=== PATIENT | female | born 1955 | race Caucasian/White ===

== ENCOUNTER 2016-02-19 11:08 | Observation (INO) | payer SELFPAY ==
[2016-02-19] VITALS (7 sets, daily range): BP systolic 139–217; BP diastolic 80–128; PULSE 63–85; RESP 16; TEMP 97–98.2; O2SAT 95–97
[~2016-02-19 11:08] MED LIST: ASPI81TA11 PO; B COTAB3 PO; CALCTAB32 OR; CLOP75 PO; HYDR12.56 PO; LISI-357 PO; METO25 PO; PROT40TA PO; ROSU20 PO; TAB-TAB PO
[2016-02-19] MEDS ORDERED: SODIUM CHLORIDE 0.9% FLUSH 5 ML FLUSH IVF PRN (12:15)
--- NOTE | 2016-02-19 12:18 | PD ---
HPI Chief Complaint: Dizziness Time Seen by Provider: 12:17 Travel History International Travel<30 days: No Contact w/Intl Traveler<30days: No Traveled to known affect area: No History of Present Illness HPI 60 year old female with history of HTN, CAD, stent placement, CABG, presents to the ED for evaluation of dizziness and unsteady gate since waking this morning around 6am. Pt states she got out of bed and "almost fell right on her face." She went back to bed to attempt to sleep it off, but it persisted for 6 hours. It seems like it may be starting to resolve at this time. She describes the sensation as the room was spinning; she could walk,but felt stuporous. She denies any chest pain, tightness, or shortness of breath. Pt has had sensation similar when the elevator at work stops, and it has been more frequent over the last month, but it lasts minutes; never this long and her gait has never been affected. She is concerned that something may be going on with her circulation because her feet are cold and they are never cold. She also states that her blood pressure is always very well controlled with systolic in the 120s on the medication that she takes. She did take her medication this morning. Denies headache, nausea, vomiting. No focal deficits or weakness. No history of TIA or CVA. Patient does have familial history of CVA. She denies any recent illnesses, fever, or chills. She has no other symptoms to report. PFSH Past Medical History Arthritis: No Asthma: No Autoimmune Disease: No Blood Disorders: No Anxiety: No Depression: No Heart Rhythm Problems: Yes Cancer: No Cardiac Catheterization: Yes (ANGIOPLASTY WAS DONE W/ STENT PLACEMENT) Cardiovascular Problems: Yes High Cholesterol: Yes Chemotherapy: No Chest Pain: No Congestive Heart Failure: No COPD: No Cerebrovascular Accident: No Coronary Artery Disease: Yes Diabetes: No Diminished Hearing: No Endocrine: No Gastrointestinal Disorders: Yes (GI BLEED JUNE 2002) GERD: No Genitourinary: Yes Hiatal Hernia: No Hypertension: Yes Immune Disorder: No Kidney Stones: No Musculoskeletal: Yes Neurologic: No Psychiatric: No Reproductive: No Respiratory: No Immunizations Current: Yes Migraines: No Myocardial Infarction: Yes (DURING ANGIOPLASTY) Radiation Therapy: No Renal Failure: No Seizures: No Sickle Cell Disease: No Sleep Apnea: No Thyroid Disease: No Menopausal: Yes : 2 Para: 3 Miscarriage: 1 Dilation and Curettage (D&C): Yes Past Surgical History Abdominal Surgery: Yes (2 SEPARATE REPAIR OF BLEEDING ULCERS) AICD: No Arteriovenous Shunt: No Coronary Artery Bypass Graft: Yes (2 VESSLE ) Coronary Stent: Yes (2004) Ear Surgery: No Endocrine Surgery: No Eye Surgery: No Genitourinary Surgery: No Gynecologic Surgery: Yes (D&C) Insulin Pump: No Joint Replacement: No Oral Surgery: No Pacemaker: Yes Thoracic Surgery: No Other Surgery: Yes Social History Alcohol Use: Yes (WINE OCC) Tobacco Use: No Substance Use: No Allergies-Medications (Allergen,Severity, Reaction): Coded Allergies: No Known Allergies (Verified , 02/19/16) Reported Meds & Prescriptions Reported Meds & Active Scripts Active Reported Protonix (Pantoprazole Sodium) 40 Mg Tab 40 Mg PO DAILY Plavix (Clopidogrel Bisulfate) 75 Mg Tab 75 Mg PO DAILY Crestor (Rosuvastatin Calcium) 20 Mg Tab 20 Mg PO DAILY Hydrochlorothiazide 12.5 Mg Tab 12.5 Mg PO DAILY Lisinopril 10 Mg Tab 10 Mg PO DAILY Metoprolol Tartrate 25 Mg Tab 25 Mg PO DAILY Review of Systems Except as stated in HPI: all other systems reviewed are Neg Physical Exam Narrative GENERAL: Well-nourished female patient, in no acute distress SKIN: Warm and dry. HEAD: Atraumatic. Normocephalic. EYES: EOMI. Peripheral No scleral icterus. No injection or drainage. ENT: No nasal bleeding or discharge. Mucous membranes pink and moist. NECK: Trachea midline. No JVD. CARDIOVASCULAR: Regular rate and rhythm. No murmur appreciated. RESPIRATORY: No accessory muscle use. Clear to auscultation. Breath sounds equal bilaterally. GASTROINTESTINAL: Abdomen soft, non-tender, nondistended. Hepatic and splenic margins not palpable. MUSCULOSKELETAL: No obvious deformities. No clubbing. No cyanosis. No edema. NEUROLOGICAL: Awake and alert. No obvious cranial nerve deficits. 5 left strength equal bilateral extremities. Sensation intact distal extremities. Patient has sway with Romberg and is unable to walk heel to toe without significant loss of balance. She can slowly do finger to thumb and has no difficulty doing [id number]. Normal speech. PSYCHIATRIC: Appropriate mood and affect; insight and judgment normal. Data Data Last Documented VS Vital Signs Date Time Temp Pulse Resp B/P Pulse Ox O2 Delivery O2 Flow Rate FiO2 02/19/16 13:05 170/91 02/19/16 12:20 16 97 Room Air 02/19/16 12:02 71 02/19/16 11:10 98.2 Orders Electrocardiogram (02/19/16 12:14) Prothrombin Time / Inr (Pt) (02/19/16 12:14) Act Partial Throm Time (Ptt) (02/19/16 12:14) Complete Blood Count With Diff (02/19/16 12:14) Basic Metabolic Panel (Bmp) (02/19/16 12:14) Creatine Kinase (Cpk) (02/19/16 12:14) Drug Screen, Random Urine (02/19/16 12:14) Troponin I (02/19/16 12:14) Urinalysis - C+S If Indicated (02/19/16 12:14) Ct Brain W/O Iv Contrast(Rout) (02/19/16 12:14) Chest, Single Ap (02/19/16 12:14) Ecg Monitoring (02/19/16 12:14) Iv Access Insert/Monitor (02/19/16 12:14) Oximetry (02/19/16 12:14) Sodium Chloride 0.9% Flush (Ns Flush) (02/19/16 12:15) Hydralazine Inj (Apresoline Inj) (02/19/16 12:30) Labs Laboratory Tests Test 02/19/16 12:25 White Blood Count 6.4 TH/MM3 Red Blood Count 5.09 MIL/MM3 Hemoglobin 15.9 GM/DL Hematocrit 46.6 % Mean Corpuscular Volume 91.6 FL Mean Corpuscular Hemoglobin 31.3 PG Mean Corpuscular Hemoglobin 34.1 % Concent Red Cell Distribution Width 13.2 % Platelet Count 212 TH/MM3 Mean Platelet Volume 9.0 FL Neutrophils (%) (Auto) 73.9 % Lymphocytes (%) (Auto) 15.4 % Monocytes (%) (Auto) 9.1 % Eosinophils (%) (Auto) 0.7 % Basophils (%) (Auto) 0.9 % Neutrophils # (Auto) 4.7 TH/MM3 Lymphocytes # (Auto) 1.0 TH/MM3 Monocytes # (Auto) 0.6 TH/MM3 Eosinophils # (Auto) 0.0 TH/MM3 Basophils # (Auto) 0.1 TH/MM3 CBC Comment DIFF FINAL Differential Comment Prothrombin Time SEC Prothromb Time International RATIO Ratio Activated Partial SEC Thromboplast Time Sodium Level 135 MEQ/L Potassium Level 3.5 MEQ/L Chloride Level 100 MEQ/L Carbon Dioxide Level 27.0 MEQ/L Anion Gap 8 MEQ/L Blood Urea Nitrogen 16 MG/DL Creatinine 0.85 MG/DL Estimat Glomerular Filtration 68 ML/MIN Rate Random Glucose 107 MG/DL Calcium Level 9.0 MG/DL Total Creatine Kinase 105 U/L Troponin I LESS THAN 0.02 NG/ML MDM Medical Decision Making Medical Screen Exam Complete: Yes Emergency Medical Condition: Yes Medical Record Reviewed: Yes Differential Diagnosis CVA versus TIA versus vertigo versus intracranial hemorrhage versus electrode abnormality versus orthostatic hypotension versus hypertensive urgency versus cardiac etiology Narrative Course 60 year-old female presents to the the emergency department for evaluation of dizziness. Patient appears overall well and without distress. She does have a slight sway with Romberg and she is unable to walk heel to toe, otherwise neurologically and is intact. CT imaging of the brain is without acute concern. Patient is quite hypertensive initially here in the emergency department. She is given hydralazine. Blood pressure does decrease but remains elevated. Patient reports slight sensation of dizziness remaining. CBC and BMP are without acute concern. Urinalysis is not yet collected are pending. I discussed the patient with my attending physician Dr. Santa. Patient cannot receive MRI because of her pacemaker however patient's symptoms still do persist and we feel the patient should be admitted for further evaluation. I spoke with resident physician web solutions architect. Patient will be admitted observation to the resident service. Diagnosis Primary Impression: Dizzinesses Additional Impression: Hypertensive urgency Admitting Information Admitting Physician Requests: Observation Condition: Stable Christa FarleyP Feb 19, 2016 12:17
[2016-02-19] MEDS ORDERED: hydrALAZINE HCL 20 MG/ML VIAL IV PUSH ONE (12:30)
[2016-02-19] MEDS ORDERED: ROSU20 PO (12:31)
[2016-02-19] MEDS ORDERED: LISI10TA3 PO (12:31)
[2016-02-19] MEDS ORDERED: PLAV75TA29 PO (12:31)
[2016-02-19] MEDS ORDERED: PROT40TA PO (12:31)
[2016-02-19] MEDS ORDERED: METO25TA3 PO (12:31)
[2016-02-19] MEDS ORDERED: HYDR12.56 PO (12:31)
--- NOTE | 2016-02-19 12:39 | RADRPT ---
EXAM DATE/TIME: 02/19/2016 12:33 [facility] COMPARISON: No previous studies available for comparison. INDICATIONS : Dizziness. RADIATION DOSE: 36.75 CTDIvol (mGy) MEDICAL HISTORY : Cardiovascular disease. Hypertension. SURGICAL HISTORY : None. ENCOUNTER: Initial ACUITY: 1 day PAIN SCALE: 0/10 LOCATION: cranial TECHNIQUE: Multiple contiguous axial images were obtained of the head. Using automated exposure control and adj ustment of the mA and/or kV according to patient size, radiation dose was kept as low as reasonably a chievable to obtain optimal diagnostic quality images. FINDINGS: CEREBRUM: The ventricles are normal for age. No evidence of midline shift, mass lesion, hemorrhage or acute in farction. No extra-axial fluid collections are seen. POSTERIOR FOSSA: The cerebellum and brainstem are intact. The 4th ventricle is midline. The cerebellopontine angle i s unremarkable. EXTRACRANIAL: The visualized portion of the orbits is intact. SKULL: The calvaria is intact. No evidence of skull fracture. CONCLUSION: No acute disease. Evelio Murcia MD on February 19, 2016 at 12:36 Board Certified Radiologist. This report was verified electronically.
[2016-02-19 12:41] LABS: AUTOMATED NEUTROPHIL # 4.7 TH/MM3 (1.8-7.7); BASOPHIL # 0.1 TH/MM3 (0-0.2); BASOPHIL % 0.9 % (0.0-2.0); EOSINOPHIL % 0.7 % (0.0-4.0); HEMATOCRIT 46.6 % (35.0-46.0); HEMO FLAGS DIFF FINAL; LYMPH % 15.4 % (9.0-44.0); MEAN CELL VOLUME 91.6 FL (80.0-100.0); MEAN CORPUSCULAR HEMOGLOBIN 31.3 PG (27.0-34.0); MEAN CORPUSCULAR HGB CONC 34.1 % (32.0-36.0); MONO % 9.1 % (0.0-8.0); NEUT % 73.9 % (16.0-70.0); PLATELET COUNT 212 TH/MM3 (150-450); RED BLOOD COUNT 5.09 MIL/MM3 (4.00-5.30); RED CELL DISTRIBUTION WIDTH 13.2 % (11.6-17.2); WHITE BLOOD COUNT 6.4 TH/MM3 (4.0-11.0)
[2016-02-19 12:58] LABS: ANION GAP 8 MEQ/L (5-15); BLOOD UREA NITROGEN 16 MG/DL (7-18); CHLORIDE 100 MEQ/L (98-107); GLOMERULAR FILTRATION RATE 68 ML/MIN (>89); POTASSIUM 3.5 MEQ/L (3.5-5.1); SODIUM (NA) 135 MEQ/L (136-145)
[2016-02-19 13:01] LABS: CREATINE KINASE 105 U/L (26-192)
--- NOTE | 2016-02-19 13:17 | RADRPT ---
EXAM DATE/TIME: 02/19/2016 13:03 [facility] COMPARISON: CHEST SINGLE AP, December 07, 2012, 21:44. INDICATIONS : CVA. Pt. c/o dizziness. MEDICAL HISTORY : None. SURGICAL HISTORY : Defibrillator 2012. ENCOUNTER: Initial ACUITY: 1 day PAIN SCORE: 0/10 LOCATION: Bilateral chest FINDINGS: AP upright view of the chest demonstrates interval appearance of a dual-lead device. Heart size is no rmal. Pulmonary vasculature is normal. Lungs are well-inflated and clear. Osseous structures are unre markable. CONCLUSION: No acute disease. Amy Khoury MD on February 19, 2016 at 13:15 Board Certified Radiologist. This report was verified electronically.
--- NOTE | 2016-02-19 14:17 | PD ---
Physical Exam Date Seen by Provider: Feb 19, 2016 Time Seen by Provider: 13:15 Narrative I, Dr. Santa, have reviewed the advance practice practitioner's documentation and am in agreement, met with the patient face to face, made the diagnosis, and the medical decision making was done by me. *My assessment and Findings: Patient seen and evaluated with nurse practitioner. Please see previous note for further details. Here with dizziness, unsteadiness, fairly elevated blood pressures. Patient is somewhat unsteady on Romberg testing. No focal neurological deficits identified. EKG shows NSR, no ST elevation or depression, and no arrhythmias. No significant T-wave inversions. Laboratory Tests Test 02/19/16 12:25 Hemoglobin 15.9 GM/DL (11.6-15.3) Hematocrit 46.6 % (35.0-46.0) Neutrophils (%) (Auto) 73.9 % (16.0-70.0) Monocytes (%) (Auto) 9.1 % (0.0-8.0) Sodium Level 135 MEQ/L (136-145) Estimat Glomerular Filtration 68 ML/MIN (>89) Rate Random Glucose 107 MG/DL (74-106) Troponin I LESS THAN 0.02 NG/ML (0.02-0.05) Last [address] 02/19/16 1214 Signed Impressions: Service Date/Time: Friday, February 19, 2016 12:33 - CONCLUSION: No acute disease. Evelio Murcia MD Chest X-Ray 02/19/16 1214 Signed Impressions: Service Date/Time: Friday, February 19, 2016 13:03 - CONCLUSION: No acute disease. Amy Khoury MD Initial CT of the brain is negative. Patient was given hydralazine IV for her fairly elevated blood pressure. At this point, plan would be to admit the patient for further treatment of blood pressure and further evaluation of neurological symptoms. She is unable to get MRI secondary to pacemaker. Case is discussed with family practice resident service for admission. Data Data Last Documented VS Vital Signs Date Time Temp Pulse Resp B/P Pulse Ox O2 Delivery O2 Flow Rate FiO2 02/19/16 13:52 66 16 141/82 95 02/19/16 12:20 Room Air 02/19/16 11:10 98.2 Orders Electrocardiogram (02/19/16 12:14) Prothrombin Time / Inr (Pt) (02/19/16 12:14) Act Partial Throm Time (Ptt) (02/19/16 12:14) Complete Blood Count With Diff (02/19/16 12:14) Basic Metabolic Panel (Bmp) (02/19/16 12:14) Creatine Kinase (Cpk) (02/19/16 12:14) Drug Screen, Random Urine (02/19/16 12:14) Troponin I (02/19/16 12:14) Urinalysis - C+S If Indicated (02/19/16 12:14) Ct Brain W/O Iv Contrast(Rout) (02/19/16 12:14) Chest, Single Ap (02/19/16 12:14) Ecg Monitoring (02/19/16 12:14) Iv Access Insert/Monitor (02/19/16 12:14) Oximetry (02/19/16 12:14) Sodium Chloride 0.9% Flush (Ns Flush) (02/19/16 12:15) Hydralazine Inj (Apresoline Inj) (02/19/16 12:30) Admit Order (Ed Use Only) (02/19/16 13:49) Labs Laboratory Tests Test 02/19/16 12:25 White Blood Count 6.4 TH/MM3 Red Blood Count 5.09 MIL/MM3 Hemoglobin 15.9 GM/DL Hematocrit 46.6 % Mean Corpuscular Volume 91.6 FL Mean Corpuscular Hemoglobin 31.3 PG Mean Corpuscular Hemoglobin 34.1 % Concent Red Cell Distribution Width 13.2 % Platelet Count 212 TH/MM3 Mean Platelet Volume 9.0 FL Neutrophils (%) (Auto) 73.9 % Lymphocytes (%) (Auto) 15.4 % Monocytes (%) (Auto) 9.1 % Eosinophils (%) (Auto) 0.7 % Basophils (%) (Auto) 0.9 % Neutrophils # (Auto) 4.7 TH/MM3 Lymphocytes # (Auto) 1.0 TH/MM3 Monocytes # (Auto) 0.6 TH/MM3 Eosinophils # (Auto) 0.0 TH/MM3 Basophils # (Auto) 0.1 TH/MM3 CBC Comment DIFF FINAL Differential Comment Prothrombin Time SEC Prothromb Time International RATIO Ratio Activated Partial SEC Thromboplast Time Sodium Level 135 MEQ/L Potassium Level 3.5 MEQ/L Chloride Level 100 MEQ/L Carbon Dioxide Level 27.0 MEQ/L Anion Gap 8 MEQ/L Blood Urea Nitrogen 16 MG/DL Creatinine 0.85 MG/DL Estimat Glomerular Filtration 68 ML/MIN Rate Random Glucose 107 MG/DL Calcium Level 9.0 MG/DL Total Creatine Kinase 105 U/L Troponin I LESS THAN 0.02 NG/ML MDM Medical Record Reviewed: Yes Supervised Visit with ARJUN: Yes Diagnosis Primary Impression: Dizzinesses Additional Impression: Hypertensive urgency Admitting Information Admitting Physician Requests: Admit Condition: Stable Deep Santa MD Feb 19, 2016 14:17
[2016-02-19] MEDS ORDERED: SODIUM CHLOR 0.45% 1000 ML INJ 1,000 ML IV SCH (14:25)
[2016-02-19] MEDS ORDERED: SODIUM CHLORIDE 0.9% FLUSH 5 ML FLUSH FLUSH PRN (14:30)
[2016-02-19] MEDS ORDERED: NALOXONE HCL 0.4 MG/ML AMP IV PRN (14:30)
[2016-02-19] MEDS ORDERED: ACETAMINOPHEN 325 MG TAB PO PRN (14:30)
[2016-02-19] MEDS ORDERED: ONDANSETRON ODT 4 MG TAB PO PRN (14:45)
[2016-02-19] MEDS ORDERED: cloNIDine HCL 0.1 MG TAB PO PRN (14:45)
--- NOTE | 2016-02-19 14:46 | HHI.HP ---
[facility] Service Family Medicine Primary Care Physician No Primary Care Physician Admission Diagnosis dizziness; hypertensive urgency; r/o cva/tia Diagnoses: Chief Complaint: Dizziness International Travel<30 Days: No Contact w/Intl Traveler<30days: No Known Affected Area: No History of Present Illness Issue is a 60-year-old female with past medical history significant for CAD with h/o of stents and CABG, now with defibrillator who presents today for dizziness. Patient states that she woke up at 7 AM and felt dizzy and shaking. She felt like she was going to fall over. She did not have any focal weakness or paresthesia. She denied any chest pain, shortness of breath, palpitations, headache, fever, or chills. She felt as if she was "trying to stand on a [id number] without holding on," or off balance. She was concerned that this was related to some kind of cardiac issue and came to the emergency department immediately. Symptoms resolved around 11 AM. She is currently feeling much better. She did not do anything new or different yesterday. She has had sinus congestion for the past 3 months that she is taking Claritin for. She was seen television schedule coordinator, Dr. Robles before she moved to [place]. She moved back to [place] 3 months ago and does not have insurance at this time and has been unable to see a television schedule coordinator for that reason. Review of Systems Constitutional: COMPLAINS OF: Dizziness, DENIES: Fever, Chills, Change in appetite Eyes: COMPLAINS OF: Blurred vision (chronic) Ears, nose, mouth, throat: COMPLAINS OF: Nasal discharge, Sinus Pain, DENIES: Throat pain Respiratory: DENIES: Cough, Shortness of breath Cardiovascular: DENIES: Chest pain, Palpitations, Syncope, Lower Extremity Edema Gastrointestinal: DENIES: Abdominal pain, Black stools, Bloody stools, Nausea, Vomiting Genitourinary: DENIES: Abnormal vaginal bleeding, Hematuria, Dysuria Musculoskeletal: DENIES: Muscle aches, Neck pain Integumentary: DENIES: Rash Hematologic/lymphatic: DENIES: Bruising Neurologic: COMPLAINS OF: Poor Balance, DENIES: Abnormal gait, Headache, Localized weakness, Paresthesias, Seizures, Speech Problems, Tremor Psychiatric: DENIES: Confusion Past Family Social History Past Medical History CADAngioplasty with stent placement (ND during angioplasty), CABG, now with AICD. GI bleed from gastric ulcer requiring blood transfusion HTN HLD Past Surgical History CABG x 2 Cardiac cath with stent x 3 Reported Medications Reported Meds & Active Scripts Active Reported Protonix (Pantoprazole Sodium) 40 Mg Tab 40 Mg PO DAILY Plavix (Clopidogrel Bisulfate) 75 Mg Tab 75 Mg PO DAILY Crestor (Rosuvastatin Calcium) 20 Mg Tab 20 Mg PO DAILY Hydrochlorothiazide 12.5 Mg Tab 12.5 Mg PO DAILY Lisinopril 10 Mg Tab 10 Mg PO DAILY Metoprolol Tartrate 25 Mg Tab 25 Mg PO DAILY Allergies: Coded Allergies: No Known Allergies (Verified , 02/19/16) Active Ordered Medications Current Medications Medications (Trade) Dose Ordered Sig/Chuyita Route Start Time Stop Time Status Last Admin (NS Flush) 2 ml UNSCH PRN IVF 02/19/16 12:15 (Plavix) 75 mg DAILY PO 02/20/16 09:00 (Microzide) 12.5 mg DAILY PO 02/20/16 09:00 (Prinivil) 10 mg DAILY PO 02/20/16 09:00 (Lopressor) 25 mg DAILY PO 02/20/16 09:00 (Protonix) 40 mg DAILY PO 02/20/16 09:00 Atorvastatin Calcium 40 mg 40 mg DAILY PO 02/20/16 09:00 (12 NS 1000 ml Inj) 1,000 ml @ 75 mls/hr [id number] IV 02/19/16 14:25 UNV (NS Flush) 2 ml UNSCH PRN FLUSH 02/19/16 14:30 UNV (NS Flush) 2 ml BID FLUSH 02/19/16 21:00 UNV (Tylenol) 650 mg Q4H PRN PO 02/19/16 14:30 UNV (Narcan Inj) 0.4 mg UNSCH PRN IV 02/19/16 14:30 UNV Family History Mother: DM Type 2 Father: Unknown Maternal Grandparents: Heart Disease Social History History of tobacco use: 1ppd x 20 years, quit in 1989 Alcohol: Occasionally drinks a glass of wine Illicit Drug Use: None Lives alone, works as a nurse at an [employer] Physical Exam Vital Signs Vital Signs Date Time Temp Pulse Resp B/P Pulse Ox O2 Delivery O2 Flow Rate FiO2 02/19/16 13:52 66 16 141/82 95 02/19/16 13:05 170/91 02/19/16 12:20 16 97 Room Air 02/19/16 12:02 71 16 97 Room Air 02/19/16 11:10 98.2 85 16 217/128 96 Room Air Physical Exam GENERAL: This is a well-nourished, well-developed female patient, in no apparent distress. SKIN: No rashes, ecchymoses or lesions. Cool and dry. HEAD: Atraumatic. Normocephalic. No temporal or scalp tenderness. EYES: Pupils equal round and reactive. Extraocular motions intact. No scleral icterus. No injection or drainage. ENT: Nose without bleeding, purulent drainage or septal hematoma. Throat without erythema, tonsillar hypertrophy or exudate. Uvula midline. Airway patent. NECK: Trachea midline. No JVD or lymphadenopathy. Supple, nontender, no meningeal signs. CARDIOVASCULAR: Regular rate and rhythm without murmurs, gallops, or rubs. RESPIRATORY: Clear to auscultation. Breath sounds equal bilaterally. No wheezes , rales, or rhonchi. GASTROINTESTINAL: Abdomen soft, non-tender, nondistended. No hepato-splenomegaly , or palpable masses. No guarding. MUSCULOSKELETAL: Extremities without clubbing, cyanosis, or edema. No joint tenderness, effusion, or edema noted. No calf tenderness. NEUROLOGICAL: Awake and alert. Cranial nerves II through XII intact. Motor and sensory grossly within normal limits. Five out of 5 muscle strength in all muscle groups. Normal speech. No dysmetria, no dysdiadochokinesia, no pronator drift. Normal gait, maintains balance with heel to toe. Walks steadily on heels and toes. PSYCHIATRIC: Stable mood and affect. Appropriate insight and judgement. Laboratory Laboratory Tests Test 02/19/16 12:25 White Blood Count 6.4 Red Blood Count 5.09 Hemoglobin 15.9 Hematocrit 46.6 Mean Corpuscular Volume 91.6 Mean Corpuscular Hemoglobin 31.3 Mean Corpuscular Hemoglobin 34.1 Concent Red Cell Distribution Width 13.2 Platelet Count 212 Mean Platelet Volume 9.0 Neutrophils (%) (Auto) 73.9 Lymphocytes (%) (Auto) 15.4 Monocytes (%) (Auto) 9.1 Eosinophils (%) (Auto) 0.7 Basophils (%) (Auto) 0.9 Neutrophils # (Auto) 4.7 Lymphocytes # (Auto) 1.0 Monocytes # (Auto) 0.6 Eosinophils # (Auto) 0.0 Basophils # (Auto) 0.1 CBC Comment DIFF FINAL Differential Comment Prothrombin Time Prothromb Time International Ratio Activated Partial Thromboplast Time Sodium Level 135 Potassium Level 3.5 Chloride Level 100 Carbon Dioxide Level 27.0 Anion Gap 8 Blood Urea Nitrogen 16 Creatinine 0.85 Estimat Glomerular Filtration 68 Rate Random Glucose 107 Calcium Level 9.0 Total Creatine Kinase 105 Troponin I LESS THAN 0.02 Result Diagram: 02/19/16 1225 02/19/16 1225 Imaging Last Impressions Head CT 02/19/16 1214 Signed Impressions: Service Date/Time: Friday, February 19, 2016 12:33 - CONCLUSION: No acute disease. Evelio Murcia MD Chest X-Ray 02/19/164 Signed Impressions: Service Date/Time: Friday, February 19, 2016 13:03 - CONCLUSION: No acute disease. Amy Khoury MD Assessment and Plan Assessment and Plan Issue is a 60-year-old female with past medical history significant for CAD with h/o of stents and CABG, now with defibrillator who presents today for dizziness. Code Status Full Code Discussed Condition With dw Dr. Casas and Dr. Nelson Problem List: (1) Dizziness Status: Acute Plan: Blood pressure elevated at 217/128 on admission, otherwise vitals stable Electrolytes and serum glucose WNL Troponin <0.02 EKG CBC significant for mildly elevated H/H at 15.9/46.[address] shows no acute disease CXR shows no acute disease Plan: - Carotid US - UA, TSH - Trend cardiac enzymes and EKG - Telemetry - Vitals and Neuro checks Q4H - Echo - AM CBC/BMP - PT - Light IV fluids with NS @ 75ml/hr - Zofran PRN nausea (2) Hypertensive urgency Status: Chronic Plan: Blood pressure initially 217/128 on admission, now at 141/82 after 1 dose of hydralazine 10 mg IV in ED. BUN and Creatinine wnl Plan: - Clonidine 0.1 mg PO Q6H PRN - work-up as above - Continue home dose of HCTZ 12.5mg PO daily and Lisinopril 10mg PO daily (3) Coronary artery disease Status: Chronic Plan: Continue home dose of: Atorvastatin 40 mg PO daily Plavix 75mg PO dialy Metoprolol 25mg PO daily (4) Ischemic cardiomyopathy Status: Chronic Plan: Pacemaker/Defibrillator Not a candidate for MRI Obtain Echo (5) Nutrition, metabolism, and development symptoms Status: Acute Plan: Fluids: NS @ 75ml/hr Electrolytes: wnl, continue to monitor and replete as needed Nutrition: Heart healthy diet DVT prophylaxis: SCD's GI PPx: History of GI bleed from Gastric Ulcer, continue on dose of Protonix 40 mg PO daily Problem Qualifiers (1) Coronary artery disease: Qualified Code: I25.10 - Coronary artery disease involving cheesh-na coronary artery of cheesh-na heart without angina pectoris Miley Martini MD R2 Feb 19, 2016 14:46
[2016-02-19 16:44] LABS: BLOOD, URINE NEG (NEG); GLUCOSE,URINE NEG (NEG); KETONE, URINE 10 mg/dL (NEG); NITRITE,URINE NEG (NEG); PH, URINE 7.5 (5.0-8.5); SQUAMOUS EPITHELIAL CELL URINE <1 /hpf (0-5); URINE COLOR LIGHT-YELLOW (YELLW/STRAW)
[2016-02-19 16:45] LABS: COMMENT (UR) CATH-CULT NOT IND; CULTURE IF INDICATED CATH CULTURE NOT IND
[2016-02-19 19:24] LABS: CREATINE KINASE 84 U/L (26-192)
[2016-02-19] MEDS: SODIUM CHLORIDE 0.9% FLUSH 5 ML FLUSH FLUSH SCH (21:00)
[2016-02-19 22:17] LABS: AMPHETAMINE, URINE NEG (NEG); BARBITURATES, URINE NEG (NEG); COCAINE, URINE NEG (NEG)
[2016-02-20 02:03] LABS: CREATINE KINASE 81 U/L (26-192)
[2016-02-20 02:04] VITALS: PULSE 60
[2016-02-20 04:29] VITALS: BP 155/93; PULSE 67; RESP 20; TEMP 97.2; O2SAT 94
[2016-02-20 05:14] LABS: AUTOMATED NEUTROPHIL # 3.1 TH/MM3 (1.8-7.7); BASOPHIL # 0.1 TH/MM3 (0-0.2); BASOPHIL % 1.2 % (0.0-2.0); EOSINOPHIL # 0.2 TH/MM3 (0-0.4); EOSINOPHIL % 3.9 % (0.0-4.0); HEMATOCRIT 43.8 % (35.0-46.0); HEMO FLAGS DIFF FINAL; LYMPH % 29.9 % (9.0-44.0); LYMPHOCYTE # 1.7 TH/MM3 (1.0-4.8); MEAN CORPUSCULAR HEMOGLOBIN 31.4 PG (27.0-34.0); MEAN CORPUSCULAR HGB CONC 34.5 % (32.0-36.0); MONO % 10.7 % (0.0-8.0); NEUT % 54.3 % (16.0-70.0); PLATELET COUNT 192 TH/MM3 (150-450); RED BLOOD COUNT 4.81 MIL/MM3 (4.00-5.30); RED CELL DISTRIBUTION WIDTH 13.5 % (11.6-17.2); WHITE BLOOD COUNT 5.7 TH/MM3 (4.0-11.0)
[2016-02-20 05:27] LABS: PROTHROMBIN TIME - PATIENT 10.8 SEC (9.8-11.6)
[2016-02-20 05:41] LABS: ALKALINE PHOSPHATASE 83 U/L (45-117); ALT (GPT) 24 U/L (10-53); ANION GAP 11 MEQ/L (5-15); AST (GOT) 22 U/L (15-37); BICARBONATE 24.5 MEQ/L (21.0-32.0); BLOOD UREA NITROGEN 13 MG/DL (7-18); CHLORIDE 102 MEQ/L (98-107); GLOMERULAR FILTRATION RATE 87 ML/MIN (>89); POTASSIUM 3.2 MEQ/L (3.5-5.1); SODIUM (NA) 137 MEQ/L (136-145); TOTAL BILIRUBIN ADULT 0.7 MG/DL (0.2-1.0)
[2016-02-20 08:00] VITALS: BP 129/92; PULSE 65; RESP 20; TEMP 97.6; O2SAT 95
--- NOTE | 2016-02-20 08:08 | RADRPT ---
EXAM DATE/TIME: 02/19/2016 22:33 [facility] COMPARISON: No previous studies available for comparison. INDICATIONS : Syncope. MEDICAL HISTORY : Myocardial infarction. Hypercholesterolemia. Hypertension. Coronary artery disease. Ulcer. Blood quintero sfusion. SURGICAL HISTORY : CABG. Pacemaker. Angioplasty. Coronary stent. Dilation and curettage. ENCOUNTER: Initial ACUITY: 1 day PAIN SCORE: 0/10 LOCATION: Bilateral neck PEAK SYSTOLIC VELOCITIES (cm/sec): ICA/CCA RATIO: Right: 1.4 Left: 1.4 ICA: Right: 98 Left: 88 CCA: Right: 71 Left: 63 ECA: Right: 68 Left: 71 VERTEBRAL: Right: 43 antegrade Left: 46 antegrade Elevated flow velocities and ICA/CCA ratios have been found to correlate with increased degrees of vessel stenosis, calculated as percentage of diameter relative to a normal segment of distal ICA/CCA FINDINGS: RIGHT CAROTID: No significant stenosis is visualized. Minimal plaque. The waveforms are within normal limits. LEFT CAROTID: No significant stenosis is visualized. Minimal plaque. The waveforms are within normal limits. VERTEBRAL ARTERIES: Antegrade flow is seen in both vertebral arteries. MISCELLANEOUS: None. CONCLUSION: No hemodynamically significant stenosis in either carotid artery. Garry Calvert MD on February 19, 2016 at 23:44 Board Certified Radiologist. This report was verified electronically.
--- NOTE | 2016-02-20 08:24 | HHI.DCPOC ---
Discharge Care Plan Diagnosis: (1) Anxiety (2) Dizzinesses (3) Hypertensive urgency Goals to Promote Your Health * To prevent worsening of your condition and complications * To maintain your health at the optimal level Directions to Meet Your Goals Take your medications as prescribed Follow your dietary instruction Follow activity as directed Keep your appointments as scheduled Take your immunizations and boosters as scheduled If your symptoms worsen call your PCP, if no PCP go to Urgent Care Center or Emergency Room Smoking is Dangerous to Your Health. Avoid second hand smoke Call the 24-hour hour crisis hotline for domestic abuse at Bridget Nicholas MD R3 Feb 20, 2016 08:24
[2016-02-20] MEDS ORDERED: PANTOPRAZOLE SOD 40 MG DELAYED RELEASE TAB PO SCH (09:00)
[2016-02-20] MEDS ORDERED: CLOPIDOGREL 75 MG TAB PO SCH (09:00)
[2016-02-20] MEDS ORDERED: LISINOPRIL 10 MG TAB PO SCH (09:00)
[2016-02-20] MEDS ORDERED: METOPROLOL TARTRATE 25 MG TAB PO SCH (09:00)
[2016-02-20] MEDS ORDERED: ATORVASTATIN 40 MG TAB PO SCH (09:00)
[2016-02-20] MEDS ORDERED: HYDROCHLOROTHIAZIDE 12.5 MG CAP PO SCH (09:00)
[2016-02-20] MEDS ORDERED: MECL12.574 PO (09:58)
[2016-02-20 10:00] VITALS: PULSE 68
[2016-02-20] MEDS ORDERED: POTASSIUM CHLORIDE 20 MEQ CONTROLLED RELEASE TAB PO ONE (10:00)
[2016-02-20] MEDS ORDERED: INFLUENZA VIRUS VACCINE (QUADRIVALENT) 0.5 ML SYR IM ONE (10:00)
[2016-02-20] MEDS: SODIUM CHLORIDE 0.9% FLUSH 5 ML FLUSH FLUSH SCH (10:32)
--- NOTE | 2016-02-20 12:37 | HHI.FPPN ---
Subjective Remarks No acute events overnight. AFVSS. Blood pressure better controlled,but hypertensive 155/90. Breathing well on room air. Ins and outs not recorded. eating, ambulating, Voiding, stooling w/o difficulty. Reports mild anxiety, but no other acute complaints. No recurrent dizziness. Pt relieved cardiac w/o negative. Agreeable for d/c later today. (Kim Nelson MD R1) Objective Vitals Vital Signs Date Time Temp Pulse Resp B/P Pulse Ox O2 Delivery O2 Flow Rate FiO2 02/20/16 08:00 97.6 65 20 129/92 95 02/20/16 04:29 97.2 67 20 155/93 94 02/20/16 02:04 60 02/19/16 23:29 162/80 02/19/16 23:27 97.0 63 16 172/95 96 02/19/16 16:57 63 16 139/85 96 Room Air 02/19/16 13:52 66 16 141/82 95 02/19/16 13:05 170/91 02/19/16 12:20 16 97 Room Air (Kim Nelson MD R1) Result Diagram: 02/20/16 0426 02/20/16 0426 Imaging Last Impressions Head CT 02/19/16 1214 Signed Impressions: Service Date/Time: Friday, February 19, 2016 12:33 - CONCLUSION: No acute disease. Evelio Murcia MD Chest X-Ray 02/19/16 1214 Signed Impressions: Service Date/Time: Friday, February 19, 2016 13:03 - CONCLUSION: No acute disease. Amy Khoury MD Carotid Artery Ultrasound 02/19/16 0000 Signed Impressions: Service Date/Time: Friday, February 19, 2016 22:33 - CONCLUSION: No hemodynamically significant stenosis in either carotid artery. Garry Calvert MD Objective Remarks CONST: Adult female in NAD DERM: Warm and dry HEENT: PERRL. EOMI. No vertical or horizontal nystagmus CV: RRR. No murmurs or gallops. RESP: Lungs CTAB GI: Abd NTND. +BS MSK: Moves all four limbs against gravity. NEURO: Motor and sensory function grossly intact. PSYCH: Appears mildly anxious, wringing hands and quick eye movements, but friendly appropriate affect. Good insight (Kim Nelson MD R1) Urinary Catheter: No (Kim Nelson MD R1) Vascular Central Line Catheter: No (Kim Nelson MD R1) A/P Assessment and Plan 60y female withCAD with h/o of stents and CABG and AICD who hospitalized for dizziness Discharge Planning Discharge home today (Kim Nelson MD R1) Attending Attestation A detailed discussion with Dr Nicholas, Dr Floyd, Dr Nelson and Dr Hernandez about patients admission was held this morning, patient was then seen and examined by the team, agree with the contents of this note,Assessment and Plan appropiate, See Orders. (Andrew Casas MD) Problem List: (1) Dizziness Status: Resolved Plan: Acute episode of dizziness yesterday "like riding a [id number]" resolved and has not recurred. Hospital workup for ACS, electrolyte abnormalities, metabolic abnormalities, intoxication returned negative. (Trop x3 , CK x3, EKG unremarkable, Carotid U/S, Head CT, CXR- no acute pathology, TSH, U /A, UDS, Electrolytes, Glucose, CBC wnl) -Discharged with meclizine when necessary severe dizziness -Patient expressed understanding of taking medication, waiting 30-60 minutes, and seeking medical care dizziness persisted. Advised of drowsiness/altered mental status side effect (2) Hypertensive urgency Status: Chronic Plan: Blood pressure initially 217/128 on admission, resolved status post hydralazine X one in ED. BUN and Creatinine wnl. -Continue home dose of HCTZ 12.5mg PO daily and Lisinopril 10mg PO daily -Clonidine PRN SBP 180+ (3) Coronary artery disease Status: Chronic Plan: Continue home dose of: Atorvastatin 40 mg PO daily Plavix 75mg PO dialy Metoprolol 25mg PO daily (4) Ischemic cardiomyopathy Status: Chronic Plan: Pacemaker/Defibrillator. Not a candidate for MRI. Previous ECHO 06/2012 ( EF 55%). -Obtain ECHO outpatient and f/u w supervisor [employer]. (5) Nutrition, metabolism, and development symptoms Status: Acute Plan: Fluids: PO Electrolytes: wnl, continue to monitor and replete as needed Nutrition: Heart healthy diet DVT prophylaxis: SCD's GI PPx: History of GI bleed from Gastric Ulcer, continue on dose of Protonix 40 mg PO daily SDW: Dr. Casas, Dr. Nicholas, Dr. Floyd (Kim Nelson MD R1) Problem Qualifiers (1) Coronary artery disease: Qualified Code: I25.10 - Coronary artery disease involving enterprise coronary artery of enterprise heart without angina pectoris Kim Nelson MD R1 Feb 20, 2016 12:37 Andrew Casas MD Feb 20, 2016 16:36
--- NOTE | 2016-02-20 22:30 | EKG ---
Date Performed: 02/20/2016 Time Performed: 00:59:52 PTAGE: 61 years EKG: ELECTRONIC ATRIAL PACEMAKER ABNORMAL RHYTHM ECG INTERPRETATION BASED ON A DEFAULT AGE OF 40 YEARS PREVIOUS TRACING : 02/19/2016 18.19 Compared to prior tracing no significant change DOCTOR: Gio Eng Interpretating Date/Time 02/20/2016 22:27:22
--- NOTE | 2016-02-20 22:38 | EKG ---
Date Performed: 02/19/2016 Time Performed: 18:19:22 PTAGE: 60 years EKG: ELECTRONIC ATRIAL PACEMAKER ABNORMAL RHYTHM ECG NO PREVIOUS TRACING DOCTOR: Gio Eng Interpretating Date/Time 02/20/2016 22:35:50
--- NOTE | 2016-02-20 22:47 | EKG ---
Date Performed: 02/19/2016 Time Performed: 12:54:33 PTAGE: 60 years EKG: Sinus rhythm NORMAL ECG PREVIOUS TRACING : 12/08/2012 05.26 Compared to prior tracing no significant change DOCTOR: Gio Eng Interpretating Date/Time 02/20/2016 22:44:16
== END 2016-02-20 13:50 | disposition home or self-care (01) ==
LOC: NEPE 11:08 → NEDA 13:52 → NEDH 16:54 → NEDA 19:28 → NEPFCDU 23:06
PROVIDERS: ADMIT Family Medicine; ATTEND Family Medicine
DX: R42 Dizziness and giddiness (principal); I16.0 Hypertensive urgency; I10 Essential (primary) hypertension; I25.10 Atherosclerotic heart disease of native coronary artery without angina pectoris; I25.2 Old myocardial infarction; E78.5 Hyperlipidemia, unspecified; I25.5 Ischemic cardiomyopathy; R94.31 Abnormal electrocardiogram [ECG] [EKG]; E78.00 Pure hypercholesterolemia, unspecified; F41.9 Anxiety disorder, unspecified; Z86.73 Personal history of transient ischemic attack (TIA), and cerebral infarction without residual deficits; Z95.1 Presence of aortocoronary bypass graft; Z95.5 Presence of coronary angioplasty implant and graft; Z87.891 Personal history of nicotine dependence; Z87.11 Personal history of peptic ulcer disease
CPT/HCPCS: 70450; 71010; 80048; 80053; 80307; 81001; 82550; 84443; 84484; 85025; 85610; 85730; 93005; 93880; 96374; 99285; G0378; J0360

== ENCOUNTER 2017-04-24 09:56 | Inpatient (IN) | payer OTHER ==
[2017-04-24] VITALS (10 sets, daily range): BP systolic 100–138; BP diastolic 61–84; PULSE 60–64; RESP 16–23; TEMP 97.3–98.5; O2SAT 96–100
[~2017-04-24] VITALS: Ht 157.5 cm; Wt 63.5 kg
[~2017-04-24 09:56] MED LIST changes: -ASPI81TA11 PO; -B COTAB3 PO; -CALCTAB32 OR; -CLOP75 PO; -LISI-357 PO; +LISI10TA3 PO; +MECL12.574 PO; -METO25 PO; +METO25TA3 PO; +PLAV75TA29 PO; -TAB-TAB PO
[2017-04-24] MEDS ORDERED: NITROGLYCERIN 0.4 MG SL 25 TABS/BTL SL STA (10:15)
[2017-04-24] MEDS ORDERED: SODIUM CHLORIDE 0.9% FLUSH 10 ML FLUSH IVF PRN (10:15)
[2017-04-24] MEDS ORDERED: NITROGLYCERIN-D5W 50 MG/250 ML 250 ML IV PRN ×2 (10:15→11:15)
[2017-04-24] MEDS ORDERED: SODIUM CHLOR 0.9% 1000 ML INJ 1,000 ML IV ONE (10:15)
[2017-04-24] MEDS ORDERED: HEPARIN SODIUM - IV 10,000 UNITS/10 ML VIAL IV PUSH STA (10:15)
--- NOTE | 2017-04-24 10:29 | PD ---
HPI Chief Complaint: Chest Pain Time Seen by Provider: 10:05 Travel History International Travel<30 days: No Contact w/Intl Traveler<30days: No Traveled to known affect area: No History of Present Illness HPI The patient is a 62-year-old female who presents to the emergency department via EMS for chest pain. The patient states that approximately 8 AM she developed a sudden hot flash, diaphoresis, and anterior chest pain. The chest pain is bilateral, anterior, described as heaviness, and radiates to both arms. The patient does have a history of previous coronary artery disease with stent placement, had a cardiac catheterization 2010 with restenosis and was sent for a keyhole procedure. The patient states she had 2 vessels bypassed via keyhole in [place]. The patient then changed roving winder and was being seen by Dr. Robles. However, the patient moved to [place] and was there for several years, recently returned as does not currently have a local roving winder or primary physician. The patient did take a baby aspirin this morning, received aspirin 162 mg orally by EMS as well as 2 nitroglycerin sublinguals, the first one which did improve her symptoms. The patient denies any shortness breath, nausea, or vomiting. Symptoms are moderate. PFSH Past Medical History Arthritis: No Asthma: No Autoimmune Disease: No Blood Disorders: No Anxiety: Yes Depression: No Heart Rhythm Problems: Yes Cancer: No Cardiac Catheterization: Yes (ANGIOPLASTY WAS DONE W/ STENT PLACEMENT) Cardiovascular Problems: Yes High Cholesterol: Yes Chemotherapy: No Chest Pain: Yes Congestive Heart Failure: No COPD: No Cerebrovascular Accident: No Coronary Artery Disease: Yes Diabetes: No Diminished Hearing: No Endocrine: No Gastrointestinal Disorders: Yes (GI BLEED JUNE 2002) GERD: No Genitourinary: No Hiatal Hernia: No Hypertension: Yes Immune Disorder: No Kidney Stones: No Musculoskeletal: No Neurologic: No Psychiatric: No Reproductive: No Respiratory: No Immunizations Current: Yes Migraines: No Myocardial Infarction: Yes (DURING ANGIOPLASTY) Radiation Therapy: No Renal Failure: No Seizures: No Sickle Cell Disease: No Sleep Apnea: No Thyroid Disease: No Ulcer: Yes Tetanus Vaccination: > 5 Years Influenza Vaccination: No Menopausal: Yes : 3 Para: 2 Miscarriage: 1 : 0 Dilation and Curettage (D&C): Yes Past Surgical History Abdominal Surgery: Yes (2 SEPARATE REPAIR OF BLEEDING ULCERS) AICD: No Arteriovenous Shunt: No Coronary Artery Bypass Graft: Yes (2 VESSLE ) Coronary Stent: Yes (2004) Ear Surgery: No Endocrine Surgery: No Eye Surgery: No Genitourinary Surgery: No Gynecologic Surgery: Yes (D&C) Insulin Pump: No Joint Replacement: No Oral Surgery: No Pacemaker: Yes Thoracic Surgery: No Other Surgery: Yes Social History Alcohol Use: Yes (WINE OCC) Tobacco Use: No Substance Use: No Allergies-Medications (Allergen,Severity, Reaction): Coded Allergies: No Known Allergies (Verified , 02/19/16) Reported Meds & Prescriptions Reported Meds & Active Scripts Active Reported Protonix (Pantoprazole Sodium) 40 Mg Tab 40 Mg PO DAILY Hydrochlorothiazide 12.5 Mg Tab 12.5 Mg PO DAILY Lisinopril 10 Mg Tab 10 Mg PO DAILY Metoprolol Tartrate 25 Mg Tab 25 Mg PO DAILY Review of Systems Except as stated in HPI: all other systems reviewed are Neg HENT: No: Lightheadedness Cardiovascular: Positive: Chest Pain or Discomfort, Diaphoresis, No: Dyspnea on exertion Respiratory: No: Shortness of Breath Gastrointestinal: No: Nausea, Vomiting, Abdominal Pain Musculoskeletal: Positive: Pain (bilateral arm pain associated with chest pain) Physical Exam Narrative GENERAL: Awake, alert, pleasant 62-year-old female who appears her stated age and appears in moderate discomfort. SKIN: Focused skin assessment warm/dry. HEAD: Atraumatic. Normocephalic. EYES: Pupils equal and round. No scleral icterus. No injection or drainage. ENT: No nasal bleeding or discharge. Mucous membranes pink and moist. NECK: Trachea midline. No JVD. CARDIOVASCULAR: Regular rate and rhythm. No murmur appreciated. AICD in place left chest wall. Well-healed scar under the left breast. RESPIRATORY: No accessory muscle use. Clear to auscultation. Breath sounds equal bilaterally. GASTROINTESTINAL: Abdomen soft, non-tender, nondistended. No rebound tenderness. MUSCULOSKELETAL: No obvious deformities. No clubbing. No cyanosis. No edema. NEUROLOGICAL: Awake and alert. No obvious cranial nerve deficits. Motor grossly within normal limits. Normal speech. PSYCHIATRIC: Appropriate mood and affect; insight and judgment normal. Data Data Last Documented VS Vital Signs Date Time Temp Pulse Resp B/P (MAP) Pulse Ox O2 Delivery O2 Flow Rate FiO2 04/24/17 10:21 100 Nasal Cannula 2.00 04/24/17 10:21 16 04/24/17 10:05 97.7 64 124/84 (97) Orders Orders Troponin I (04/24/17 10:15) Ckmb (Isoenzyme) Profile (04/24/17 10:15) Complete Blood Count With Diff (04/24/17 10:15) I-Stat Profile (04/24/17 10:15) I-Stat Creatinine (04/24/17 10:15) Calcium (04/24/17 10:15) Magnesium (Mg) (04/24/17 10:15) Prothrombin Time / Inr (Pt) (04/24/17 10:15) Act Partial Throm Time (Ptt) (04/24/17 10:15) B-Type Natriuretic Peptide (04/24/17 10:15) Chest, Single Ap (04/24/17 10:15) Electrocardiogram (04/24/17 10:15) Oxygen Administration (04/24/17 10:15) Iv Access Insert/Monitor (04/24/17 10:15) Oximetry (04/24/17 10:15) Sodium Chlor 0.9% 1000 Ml Inj (Ns 1000 M (04/24/17 10:15) Sodium Chloride 0.9% Flush (Ns Flush) (04/24/17 10:15) Nitroglycerin Sl (Nitrostat Sl) (04/24/17 10:15) Nitroglycerin-D5w 50 Mg/250 Ml (Nitrogly (04/24/17 10:15) Heparin Inj (Heparin Inj) (04/24/17 10:15) Cardiac Catheterization (04/24/17 ) MDM Medical Decision Making Medical Screen Exam Complete: Yes Emergency Medical Condition: Yes Medical Record Reviewed: Yes Interpretation(s) EKG reveals electronic atrial pacemaker. Rate 63. ST elevation noted in V1, V2 , and V3 with mild ST depression in V6 and lead 2. Chest x-ray reveals AICD in place. There is no obvious widened mediastinum to suggest dissection. I-STAT creatinine is 0.8 I-STAT sodium 141, potassium 3.7, chloride 104, BUN 9, glucose 100, hemoglobin 13.9, hematocrit 41% Differential Diagnosis Differential diagnosis includes STEMI, ACS, dissection, PE, GERD, esophageal spasm, pancreatitis, perforated viscus. Narrative Course IV was established, labs are drawn and sent, the patient was placed on cardiac telemetry monitoring and continuous pulse oximetry monitoring. EKG was ordered and interpreted. The patient received aspirin prior to arrival. EKG reveals ST elevations V1, V2, V3, with ST depressions noted in V6, and lead 2. I discussed the patient with the on-call roving winder, Dr. Macdonald, EKG was sent to Dr. Macdonald. STEMI alert was called. The patient went to the Coal Pul[facility] Operator after receiving heparin 4000 units intravenously and being placed on a nitro drip. The patient will be admitted to the roving winder. Critical Care Narrative Aggregate critical care time was 35 minutes. Time to perform other separately billable procedures was not included in the critical care time. My time did not include minutes spent treating any other patients simultaneously or on activities that did not directly contribute to the patient's treatment. The services I provided to this patient were to treat and/or prevent clinically significant deterioration that could result in: Anoxia, hypoxia, arrhythmia, dissection, . I provided critical care services requiring my management, as noted below: Chart data review, documentation time, medication orders and management, vital sign assessments/reviewing monitor data, ordering and reviewing lab tests, ordering and interpreting/reviewing x-rays and diagnostic studies, care of the patient and discussion of the patient with the admitting physicians. Physician Communication Physician Communication I discussed the patient with the on-call personnel analyst, Dr. Macdonald , who agrees with cardiac catheterization lab. Diagnosis Primary Impression: STEMI (ST elevation myocardial infarction) Qualified Codes: I21.3 - ST elevation (STEMI) myocardial infarction of unspecified site Admitting Information Admitting Physician Requests: Admit Condition: Stable Glynn Muñoz MD Apr 24, 2017 10:29
[2017-04-24] MEDS ORDERED: HEPARIN-NS/PF FLUSH BAG 2,000 ML IV FLUSH ONE (10:30)
[2017-04-24] MEDS ORDERED: HEPARIN SODIUM - IV 10,000 UNITS/10 ML VIAL ONE (10:31)
[2017-04-24] MEDS ORDERED: NITROGLYCERIN INJ 5 ML ONE (10:32)
[2017-04-24 10:37] LABS: AUTOMATED NEUTROPHIL # 2.9 TH/MM3 (1.8-7.7); BASOPHIL # 0.1 TH/MM3 (0-0.2); BASOPHIL % 1.2 % (0.0-2.0); EOSINOPHIL # 0.1 TH/MM3 (0-0.4); EOSINOPHIL % 2.6 % (0.0-4.0); HEMATOCRIT 42.3 % (35.0-46.0); HEMOGLOBIN 14.6 GM/DL (11.6-15.3); LYMPH % 31.2 % (9.0-44.0); LYMPHOCYTE # 1.6 TH/MM3 (1.0-4.8); MEAN CELL VOLUME 92.7 FL (80.0-100.0); MEAN CORPUSCULAR HGB CONC 34.5 % (32.0-36.0); MEAN PLATELET VOLUME 7.6 FL (7.0-11.0); MONO % 8.6 % (0.0-8.0); MONOCYTE # 0.4 TH/MM3 (0-0.9); NEUT % 56.4 % (16.0-70.0); PLATELET COUNT 272 TH/MM3 (150-450); RED BLOOD COUNT 4.56 MIL/MM3 (4.00-5.30); RED CELL DISTRIBUTION WIDTH 13.1 % (11.6-17.2); WHITE BLOOD COUNT 5.2 TH/MM3 (4.0-11.0)
[2017-04-24] MEDS ORDERED: TIROFIBAN INFUSION INJ 250 ML IV ONE (10:41)
--- NOTE | 2017-04-24 10:44 | RADRPT ---
EXAM DATE/TIME: 04/24/2017 10:21 [facility] COMPARISON: CHEST SINGLE AP, February 19, 2016, 13:03. INDICATIONS : STEMI Alert. Chest pain. MEDICAL HISTORY : Myocardial infarction. Hypercholesterolemia. Hypertension. Coronary artery disease. Ulcer. SURGICAL HISTORY : CABG. Defibrillator. Angioplasty. Coronary stent. Dilation and curettage. ENCOUNTER: Initial ACUITY: 1 day PAIN SCORE: 7/10 LOCATION: Bilateral upper chest FINDINGS: There is no focal consolidation or effusion. No pneumothorax. Heart size mildly enlarged. Mildly tort uous aorta. Pacer leads overlie the right atrium and right ventricle. CONCLUSION: 1. No active disease. Pacer lead overlies right atrium and right ventricle. Gunner Singh MD on April 24, 2017 at 10:35 Board Certified Radiologist. This report was verified electronically.
[2017-04-24 10:45] LABS: INTERNATIONAL NORMALIZED RATIO 1.1 RATIO; PROTHROMBIN TIME - PATIENT 10.9 SEC (9.8-11.6)
[2017-04-24 10:51] LABS: CALCIUM 9.1 MG/DL (8.5-10.1)
[2017-04-24] MEDS ORDERED: MIDAZOLAM HCL 2 MG/2 ML VIAL ONE (10:51)
[2017-04-24 10:56] LABS: MAGNESIUM 1.9 MG/DL (1.5-2.5)
[2017-04-24 10:59] LABS: TROPONIN I LESS THAN 0.02 NG/ML (0.02-0.05)
[2017-04-24] MEDS ORDERED: CLOPIDOGREL 300 MG TAB ONE (11:32)
[2017-04-24] MEDS ORDERED: MISC INFORMATION XX ONE (11:45)
[2017-04-24] MEDS ORDERED: TEMAZEPAM 15 MG CAP PO PRN (11:45)
[2017-04-24] MEDS: TIROFIBAN INFUSION INJ 250 ML IV SCH ×2 (11:45→21:28)
[2017-04-24] MEDS: SODIUM CHLOR 0.9% 1000 ML INJ 1,000 ML IV SCH ×2 (12:00→14:04)
--- NOTE | 2017-04-24 12:02 | CATHPROC ---
[facility] HIS Report Study Information Study Number Admission Scheduled Start Study Start [id number] Apr 24 2017 9:56AM 04/24/2017 Apr 24 2017 10:23AM [place] [facility] Cardiac Catheterization Admit Source Facility Department Emergency department [facility] - Multimedia Services Coordinator Physician and Clinical Staff Initial Darius Sprague Weapons Specialist Shaylee Montalvo,KIKO Weapons Specialist Swathi Martinez,RT(R) Recorder Nusrat Noyola ,RT(R) Scrub Perlita Warner,PACKER INSULATION TECH2 Procedures Performed Procedure Location (Site) Vessel Name Angiogram LV LV Ventricle Coronary Angiograms LCA Left Coronary Coronary Angiograms RCA Right Coronary Coronary Angiograms ALEJO ALEJO Drug Eluting Inflatio LAD Mid Left Coronary IVUS LAD Mid Left Coronary L Heart Cath PTCA LAD Mid Left Coronary Wire insertion Fem Art (right) Femoral Art Equipment Time Fire Pot Operator Description Size Mfg Part Number Used/Scraped [id number] 11:01 ROMERO [employer] C[employer] WIRE, ASAHI PROWATER 180CM 180CM Used *[id number] TRANSDUCER, TRUWAVE [id number] 10:26 LUTHER MOROCHO * Used W/STOCKCOCK *[id number] *[id number] [id number] *[id number] [id number] *[id number] *[id number] 10:26 Donde INDUSTRIES PACK, CCL CUSTOM * Used *[id number] 10:26 Donde PACER PEN, SKIN DUAL W/ RULER * Used *[id number] BALLOON, 2.75 X 15MM [id number] 11:06 MEDTRONIC 15MM Used EUPHORA *[id number] BALLOON, 2.75 X 20MM NC [id number] 11:09 MEDTRONIC 20MM Used EUPHORA *[id number] 11:16 MEDTRONIC STENT, 2.75 30MM SHAILESH 2.75 30MM [id number] Used [id number] 11:07 mPortal MEDICAL 30 GIANA INDEFLATOR Used *[id number] 10:26 mPortal MEDICAL SHEATH, FR6.5 PRELUDE 11CM FR 6.5 038ACT Used *[id number] 10:26 [employer]Portal MEDICAL WIRE, 3MMJ .035 180CM 180CM Used *[id number] 10:26 [facility] MANIFOLD, 4 PORT * Used *[id number] 11:26 NAMIC TUBING, HIGH PRESSURE 20" 20" Used *[id number] 11:30 NAMIC TUBING, HIGH PRESSURE 20" 20" Used *[id number] 10:26 NYCOMED OMNIPAQUE, 350 MG, 150ML 150ML [id number] Used [id number] 10:26 RIVAS MEDICAL BLANKET,WARM AIR CCL * Used *[id number] CATHETER, [facility] [place] [id number] 11:17 VOLCANO Used IMAGING *[id number] Equipment Model, Serial, Lot Number and Expiration Data Description Model Number Serial Number Lot Number Expiration Date BALLOON, 2.75 X 20MM NC [id number] 09-10-2017 EUPHORA CATHETER, [facility] [facility] [place] [id number] 01-08-2019 IMAGING STENT, 2.75 30MM SHAILESH [id number] 11-12-2018 History: Allergies Allergy Reaction No Known Allergies History: Risk Factors Family History of Hypertension Dyslipidemia Previous MN Previous Heart Failure Premature CAD Yes Yes Yes Yes No Prior Valve Prior PCI Prior PCIDate Prior CABG Prior CABGDate Surgery No Yes 12/22/2005 Yes 02/09/2010 Cerebrovascular Peripheral Artery Chronic Lung On Dialysis Diabetes Disease Disease Disease No No No No No History: Other Current Smoker Method Quit Packs a Day Years Used Pack Years No Cigarettes 29 Years Ago 2 22 44 Labs Hgb (g/dl) Hct (%) 11.60-17.00 35.00-51.00 13.9 41 Glucose (mg/dl) Creatinine (mg/dl) 74.00-106.00 0.50-1.30 100 0.8 Na (meq/l) K (meq/l) Cl (meq/l) 136.00-145.00 3.50-5.10 98.00-107.00 141 3.7 104 Medication Medication Total Dose (Bolus/Oral) Medication Total Dosage/Unit 1% XYLOCAINE 15 mL AGGRASTAT BOLUS 30 mL FENTANYL 50 mcg PLAVIX 600 mg VERSED 2 mg Medications (Bolus/Oral) Medication Time Given Dosage/Unit Administered By Reason VERSED 04/24/2017 10:53:48 AM 2 mg Shaylee Montalvo 2 mg VERSED given in lab by Shaylee Montalvo RN in Left Antecubital via Peripheral IV. Ordered by Darius Moore. 1% XYLOCAINE 04/24/2017 10:54:02 AM 15 mL Darius Macdonald 15 mL 1% XYLOCAINE given in lab by Darius Macdonald in Right Groin via Subcutaneous. Ordered by Hernesto Macdonald. FENTANYL 04/24/2017 10:54:57 AM 50 mcg Shaylee Montalvo 50 mcg FENTANYL given in lab by Shaylee Montalvo, KIKO in Left Antecubital via Peripheral IV. Ordered b y Darius Macdonald. AGGRASTAT BOLUS 04/24/2017 11:03:35 AM 30 mL Shaylee Montalvo 30 mL AGGRASTAT BOLUS given in lab by Shaylee Montalvo RN in Left Antecubital via Peripheral IV. Ord ered by Darius Macdonald. PLAVIX 04/24/2017 11:35:19 AM 600 mg Shaylee Montalvo 600 mg PLAVIX given in lab by Shaylee Montalvo RN via Oral. Ordered by Darius Macdonald. Medication (Drip) Medication Time Given Dosage/Unit Concentration/Unit Diluent (ml) Solution AGGRASTAT DRIP 04/24/2017 11:03:54 AM 0.15 mcg/kg/min 12.5 mg 250 NaCl .9 0.15 mcg/kg/min AGGRASTAT DRIP given in lab by Shaylee Montalvo RN via Peripheral IV. Pump/Drip Flow = 10.8 ml/hr using NaCl .9 with a concentration of 12.5 mg in 250 ml. Ordered by Darius Macdonald. IV Solutions 04/24/2017 10:37:51 AM 50 mL (IV) NaCl .9 Patient arrived on IV Solutions in Right Antecubital via Peripheral IV. Pump/Drip Flow using NaCl .9. Initial Case Assessment Cardiovascular HR Rhythm NIBP Chest Pain 68 stemi 135/91 4 Edema Present Skin color Skin None Normal Warm Dry Circulatory - Right Pulses Dorsalis Pedis Femoral 2 2 Scale (0,1,2,3,4,d) Circulatory - Left Pulses Dorsalis Pedis Femoral 2 2 Scale (0,1,2,3,4,d) Circulatory - Lower Extremities Color Lower Right Color Lower Left Normal Normal Neurological State Oriented to time-place- Alert Moves all extremities person Respiration - General Respiration Rate SpO2 (%) (B/min) 27 99 Final Case Assessment Cardiovascular HR NIBP Chest Pain 63 123/73 0 Edema Present Skin color Skin None Normal Warm Dry Circulatory - Right Pulses Dorsalis Pedis Femoral 2 2 Scale (0,1,2,3,4,d) Circulatory - Left Pulses Dorsalis Pedis Femoral 2 2 Scale (0,1,2,3,4,d) Circulatory - Lower Extremities Color Lower Right Color Lower Left Normal Normal Neurological State Oriented to time-place- Alert Moves all extremities person Respiration - General Respiration Rate SpO2 (%) (B/min) 15 98 Chronological Log Time Study Chronological Log 10:37:28 Patient arrived via Bed. 10:37:29 Patient Name, D.O.B, / Armband Verified By R.N. 10:37:30 Consent signed by the physician and the patient and verified by the Multimedia Services Coordinator staff. 10:37:33 Presedation assessment performed by Multimedia Services Coordinator RN. 10:37:41 Patient has been NPO for Less than 6Hrs. 10:37:42 Skin Breakdown- none per patient 10:37:43 Patient Warmer Placed on the Table. 10:37:44 Disposable Defibrillator Pads Placed On Patient. 10:37:47 Flavia Prominences Protected 10:37:50 A # 18 IV was noted in the Antecubital (right). Grade = 0 10:37:50 A # 18 IV was noted in the Antecubital (left). Grade = 0 10:37:51 Patient arrived on IV Solutions in Right Antecubital via Peripheral IV. Pump/Drip Flow usin g NaCl .9. 10:37:51 History and physical on the chart or being dictated. Assessment: Initial Case, HR=68 BPM, Rhythm=stemi, BGDH=020/91 mmhg, Chest Pain=4, Edema=None, Color=Normal, Skin = Warm, Dry Right Pulses: Juan Alberto Ped=2, Femoral=2 Left Pulses: Juan Alberto Ped=2, Femoral=2 10:37:53 Lower Right Extremities: Color=Normal Lower Left Extremities: Color=Normal Neurological: State=Alert, Ox3, TORREZ Respiration: Resp=27 B/min, SpO2=99 % Vitals capture started with the following parameters, Patient=Adult, Interval=5 min, Initial Pr wlahbl=223 mmHg, 10:39:59 Deflation Rate=5 mmHg, Cuff placed on Right Arm 10:40:33 XB=529 bpm, WRNS=162/91 mmhg, SpO2=98.0 %, Resp=23 B/min, Pain=4, Christina=10, Dalal=2 10:43:58 MD paged 10:45:34 HR=65 bpm, SUPK=065/87 mmhg, VpD8=082.0 %, Resp=15 B/min, Pain=4, Christina=10, Dalal=2 10:45:37 Pressure channel 1 zeroed. 10:47:17 MD arrived. 10:49:12 Reference ECG taken 10:50:37 HR=61 bpm, JELR=938/88 mmhg, AjG8=307.0 %, Resp=15 B/min, Pain=4, Christina=10, Dalal=2 Time Out. Correct patient, correct procedure, correct physician, power injector not loaded with contrast with surgical 10:53:22 team present. Time Out Concurred by MD and individual staff in procedure. 10:53:43 Case Start 10:53:48 2 mg VERSED given in lab by Shaylee Montalvo, RN in Left Antecubital via Peripheral IV. Ord ered by Darius Macdonald. 10:54:02 15 mL 1% XYLOCAINE given in lab by Darius Macdonald in Right Groin via Subcutaneous. Ordered by Darius Macdonald. 10:54:57 50 mcg FENTANYL given in lab by Shaylee Montalvo, KIKO in Left Antecubital via Peripheral IV. Ordered by Darius Macdonald. 10:55:38 HR=59 bpm, AVSK=631/77 mmhg, RkI3=725.0 %, Resp=20 B/min, Pain=4, Christina=10, Dalal=2 10:56:30 Access site was Right Femoral Artery. 10:56:53 A SHEATH, FR6.5 PRELUDE 11CM FR 6.5 was advanced into the Fem Art (right) using the Percuta neous technique. A JL 4.0 INFINITI CATHETER FR 6 was advanced over a wire. OMNIPAQUE, 350 MG, 150ML 150ML was us ed for 10:57:06 injections. 10:58:06 The LCA was injected and visualized at various angles. OMNIPAQUE, 350 MG, 150ML 150ML used . After removing the current catheter a 3DRC INFINITI CATHETER FR 6 was advanced over a WIRE, 3MM J .035 180CM 10:58:16 180CM. 10:59:28 The ALEJO was injected and visualized at various angles. OMNIPAQUE, 350 MG, 150ML 150ML used . 10:59:52 The RCA was injected and visualized at various angles. OMNIPAQUE, 350 MG, 150ML 150ML used . 11:00:33 HR=59 bpm, FFHV=939/79 mmhg, SpO2=97.0 %, Resp=20 B/min, Pain=4, Christina=10, Dalal=2 11:01:01 Catheter was removed A XB 3.5 GUIDE CATHETER FR 6 was advanced over a wire. OMNIPAQUE, 350 MG, 150ML 150ML was used for 11:01:36 injections. 11:02:53 A WIRE, ASAHI PROWATER 180CM 180CM was inserted via Fem Art (right). 30 mL AGGRASTAT BOLUS given in lab by Shaylee Montalvo, KIKO in Left Antecubital via Peripheral I V. Ordered by 11:03:35 Darius Macdonald. Recorded Pressure: Ao, HR=60, Condition=Condition 1 11:03:40 (Aorta) Ao 117/71/90 0.15 mcg/kg/min AGGRASTAT DRIP given in lab by Shaylee Montalvo, KIKO via Peripheral IV. Pump/Dri p Flow = 10.8 11:03:54 ml/hr using NaCl .9 with a concentration of 12.5 mg in 250 ml. Ordered by Darius Macdonald. 11:05:30 HR=63 bpm, TUFM=946/82 mmhg, SpO2=98.0 %, Resp=16 B/min, Pain=4, Christina=10, Dalal=2 11:05:40 Interventional wire has crossed the lesion 11:05:49 Activated Clotting Time Drawn A BALLOON, 2.75 X 15MM EUPHORA 15MM was inserted over WIRE, ASAHI PROWATER 180CM 180CM via the Fem Art 11:06:06 (right). A BALLOON, 2.75 X 15MM EUPHORA 15MM over a WIRE, ASAHI PROWATER 180CM 180CM in the LAD Mid was inflated 11:07:02 using a 30 GIANA INDEFLATOR at 12 giana for 28 sec. 11:07:49 Balloon Removed. 11:08:53 ACT (Normal Range 90-180) = 358 A BALLOON, 2.75 X 20MM NC EUPHORA 20MM was inserted over WIRE, ASAHI PROWATER 180CM 180CM via t he Fem 11:10:00 Art (right). A BALLOON, 2.75 X 20MM NC EUPHORA 20MM over a WIRE, ASAHI PROWATER 180CM 180CM in the LAD Mid w as 11:10:08 inflated using a 30 GIANA INDEFLATOR at 15 giana for 30 sec. 11:10:33 HR=59 bpm, SBNS=693/80 mmhg, XtY3=003.0 %, Resp=16 B/min, Pain=4, Christina=10, Dalal=2 A BALLOON, 2.75 X 20MM NC EUPHORA 20MM over a WIRE, ASAHI PROWATER 180CM 180CM in the LAD Mid w as 11:10:39 inflated using a 30 GIANA INDEFLATOR at 15 giana for 30 sec. A BALLOON, 2.75 X 20MM NC EUPHORA 20MM over a WIRE, ASAHI PROWATER 180CM 180CM in the LAD Mid w as 11:11:29 inflated using a 30 GIANA INDEFLATOR at 15 giana for 20 sec. 11:12:01 Balloon Removed. A STENT, 2.75 30MM SHAILESH 2.75 30MM was advanced through a XB 3.5 GUIDE CATHETER FR 6 over a WIRE , ASAHI 11:14:22 PROWATER 180CM 180CM. 11:15:34 HR=59 bpm, HSRY=935/80 mmhg, BqC9=257.0 %, Resp=18 B/min, Pain=4, Christina=10, Dalal=2 A STENT, 2.75 30MM SHAILESH 2.75 30MM was deployed using a 30 GIANA INDEFLATOR at 14 atmospheres for 30 seconds 11:16:02 in the LAD Mid. 11:16:39 Delivery device removed 11:16:49 An CATHETER, [facility] [place] [facility] was advanced through the lesion. Images saved ont o IVUS hard drive 11:19:20 IVUS in progress using CATHETER, [facility] [place] [facility] 11:20:35 HR=60 bpm, CMCN=097/80 mmhg, PeP0=392.0 %, Resp=17 B/min, Pain=4, Christina=10, Dalal=2 11:21:59 IVUS catheter removed A BALLOON, 2.75 X 20MM NC EUPHORA 20MM was inserted over WIRE, ASAHI PROWATER 180CM 180CM via t he Fem 11:23:05 Art (right). A BALLOON, 2.75 X 20MM NC EUPHORA 20MM over a WIRE, ASAHI PROWATER 180CM 180CM in the LAD Mid w as 11:24:23 inflated using a 30 GIANA INDEFLATOR at 15 giana for 30 sec. A BALLOON, 2.75 X 20MM NC EUPHORA 20MM over a WIRE, ASAHI PROWATER 180CM 180CM in the LAD Mid w as 11:25:05 inflated using a 30 GIANA INDEFLATOR at 19 giana for 30 sec. 11:25:34 HR=61 bpm, OSXM=138/82 mmhg, HsK5=954.0 %, Resp=17 B/min, Pain=4, Christina=10, Dalal=2 A BALLOON, 2.75 X 20MM NC EUPHORA 20MM over a WIRE, ASAHI PROWATER 180CM 180CM in the LAD Mid w as 11:25:46 inflated using a 30 GIANA INDEFLATOR at 19 giana for 30 sec. 11:26:27 Balloon Removed. 11:27:24 Wire removed After removing the current catheter a PIGTAIL STR INFINITI CATHETER FR 6 was advanced over a WI RE, 3MMJ .035 11:27:28 180CM 180CM. 11:28:07 Activated Clotting Time Drawn Recorded Pressure: LV, HR=60, Condition=Condition 1 11:30:09 (Left Ventricle) LV 130/6/22 11:30:38 HR=60 bpm, OSKO=645/73 mmhg, PoW1=305.0 %, Resp=17 B/min, Pain=4, Christina=10, Dalal=2 11:31:12 The LV was injected at 12 cc/sec for a total of 42. OMNIPAQUE, 350 MG, 150ML 150ML used. Recorded Pressure: LV, Ao, HR=61, Condition=Condition 1 11:31:41 (Left Ventricle) LV 128/5/21, (Aorta) Ao 131/70/96 11:32:05 Catheter was removed 11:32:17 ACT (Normal Range 90-180) = 230 11:33:50 Case End Assessment: Final Case, HR=63 BPM, JPGT=341/73 mmhg, Chest Pain=0, Edema=None, Color=Normal, S kin = Warm, Dry Right Pulses: Juan Alberto Ped=2, Femoral=2 Left Pulses: Juan Alberto Ped=2, Femoral=2 11:34:01 Lower Right Extremities: Color=Normal Lower Left Extremities: Color=Normal Neurological: State=Alert, Ox3, TORREZ Respiration: Resp=15 B/min, SpO2=98 % 11:34:03 Catheter(s) removed without difficulty 11:34:08 Sterile dressing applied to site 11:34:10 No case complications noted. 11:34:13 Bedside Report will be given. 11:34:14 Implantable Device card placed in patient's chart. 11:34:17 A Left Heart Cath was performed. 11:35:19 600 mg PLAVIX given in lab by Shaylee Montalvo RN via Oral. Ordered by Darius Macdonald. 11:36:15 In the Fem Art (right) the SHEATH, FR6.5 PRELUDE 11CM FR 6.[address] by Perlita Warner, PACKER INSULATION TECH2. 11:36:28 HR=64 bpm, UROB=060/57 mmhg, MxA8=755.0 %, Resp=23 B/min 11:40:36 HR=60 bpm, ZLRQ=516/83 mmhg, GtZ4=417.0 %, Resp=15 B/min, Pain=4, Christina=10, Dalal=2 11:45:39 HR=59 bpm, EGNM=569/80 mmhg, YdH4=272.0 %, Resp=13 B/min, Pain=4, Christina=10, Adlal=2 12:01:[address] [facility] End Study - Contrast Media Used In Study Contrast Total Opened (mL) Total Used (mL) Total Wasted (mL) Omnipaque 122 122 0 End Study - Maximum Contrast Load Max Contrast Load (mL) 375.0 End Study - Radiation Exposure Fluoro Time (minutes) 8.7 End Study - Patient Disposition Complications Transferred To Interventional Outcome No Critical Care Bed successful
--- NOTE | 2017-04-24 12:26 | MA ---
cc: Darius Macdonald MD PROCEDURE: Emergency left heart catheterization, selective coronary arteriography, left ventriculography, angioplasty and stent of the mid LAD, intravascular ultrasound imaging of the mid left anterior descending. PROCEDURE NOTES: The patient was brought to the cardiac catheterization laboratory under emergent conditions in the midst of an acute anterior myocardial infarction. The right groin was prepped and draped as per policy and anesthetized with 1% lidocaine. Arterial access was obtained via the right femoral artery and a 6-Israeli sheath placed. Coronary arteriography was performed using 6-Israeli Trinity left 4.0 and right Progressive catheters. Left ventriculography was done using a standard 6-Israeli pigtail. Percutaneous coronary intervention was done as described below. There were no apparent immediate complications. HEMODYNAMIC DATA: Left ventricle 128 with an end-diastolic pressure of 28. Aorta 131/70 with a mean of 96. There was no significant transvalvular aortic gradient on pullback of the pigtail catheter. CORONARY ARTERIOGRAPHY: The left main is normal. The left anterior descending demonstrates a number of overlapped stents in the mid LAD. There is total occlusion of the most proximal edge of the stents. The proximal LAD is normal. The left circumflex is a relatively small vessel giving rise to small obtuse marginals which are free of disease. There is up to 10% stenosis in the proximal left circumflex. The right coronary artery is a relatively large, dominant vessel with 25% proximal stenosis. LEFT VENTRICULOGRAPHY: Contrast injection of the left ventricle reveals severe mid to distal anterior hypokinesis as well as an area of apical akinesis. Ejection fraction is estimated at 35%. PERCUTANEOUS CORONARY INTERVENTION DESCRIPTION: Aggrastat was given as per protocol. Adequate heparin was given during the procedure to achieve an ACT greater than 250 seconds. Using a 6-Israeli XB 3.5 guiding catheter, the ostium of the left main was reengaged. Using a 0.014 Prowater guidewire the total occlusion in the mid LAD was crossed without difficulty and the tip of the wire positioned distally. Predilation was done using a 2.75 mm Euphora balloon catheter and then a 2.75 Noncompliant Euphora balloon catheter. This reestablished relatively normal flow in the vessel. Stenting was then done using a 2.75 x 30 mm Resolute Matheson stent which was postdilated using the same 2.75 mm Noncompliant Euphora balloon catheter which was inflated to as high as 19 atmospheres along the length of the stent. Final angiography shows reduction of the initial total occlusion to roughly 0% residual with no definite evidence for dissection or distal embolization. Because of the patient's repeated problems with mid LAD stent restenosis, it was decided to perform intravascular ultrasound imaging to make sure stent deployment was optimal. A OKCoin ultrasound catheter was advanced distally and withdrawn slowly. Stent deployment and apposition appears to be good, except for possibly one short region in the mid portion of the stent. Further predilation was done with a 2.75 mm Noncompliant Euphora balloon catheter inflated to as high as 19 atmospheres. Final angiography again shows good results. The patient tolerated the procedure well. There were no apparent immediate complications. GRAFT ANGIOGRAPHY: A graft to the LAD apparently is known to be totally occluded chronically. The left internal mammary artery to the diagonal is widely patent. CONCLUSIONS: 1. Acute the anterior ST elevation myocardial infarction due to total occlusion of the mid left anterior descending within multiple previously placed stents, now status post angioplasty, stent, intravascular ultrasound imaging of this region. 2. Patent left internal mammary artery to the diagonal. Chronically occluded graft to the LAD. 3. Reduced left ventricular systolic function with ejection 35%. MD TERESITA Dempsey/MAGDALENE , 11:42 AM , 12:25 PM FABIOLA
--- NOTE | 2017-04-24 12:48 | MB ---
cc: Darius Macdonald MD DATE OF CONSULT: REASON FOR CONSULTATION: Acute ST elevation myocardial infarction. HISTORY OF PRESENT ILLNESS: The patient is a 62-year-old white female with an extensive history of coronary artery disease, history of ischemic cardiomyopathy, hypertension, peptic ulcer disease, history of AICD implant, who presented to the hospital with chest pain. At about 8:30 a.m. this morning she developed a substernal chest pressure associated with diaphoresis, without shortness of breath or nausea. She came to the Emergency Department at about 10 a.m. where EKG showed evidence for acute anterior ST elevation myocardial infarction. At the present time, she is having continued mild chest discomfort. She states the chest pain feels exactly like her previous angina. She denies pleurisy, dizziness, syncope, near syncope, palpitations, pedal edema, paroxysmal nocturnal dyspnea. The patient was last here in 2012, at which time she was seeing Dr. Robles. She then moved to [place] where she did not need any cardiac hospitalizations. PAST MEDICAL HISTORY: 1. Coronary artery disease dating back to approximately 12/19/2005 at which time she underwent cutting balloon angioplasty of the diagonal during an intended percutaneous coronary intervention on the mid LAD resulting in perforation necessitating placement of a 4.0 mm Jomed LAD stent. In 04/04/2010 she developed severe restenosis of the mid left anterior descending. She apparently had had 2 other stents placed since the Jomed stent, so she was referred for keyhole surgery at which time the patient states she had 2 vessels bypassed. On 07/07/2012 she underwent bare metal stenting of the mid LAD due to severe restenosis. The graft to the LAD apparently was totally occluded at that time with a patent left internal mammary artery to the diagonal. Her last heart catheterization 12/06/2012, apparently showed no high grade coronary artery disease. 2. Hypertension. 3. Peptic ulcer disease status post gastrointestinal bleed in 2012. 4. Ischemic cardiomyopathy with ejection fraction of 35% by cardiac catheterization 12/06/2012, subsequently undergoing placement of a dual chamber Medtronic defibrillator 12/07/[address] Robles. CARDIAC MEDICATIONS AT HOME: Fish oil. She states she has not been taking any other medications. ALLERGIES: NO KNOWN DRUG ALLERGIES. FAMILY HISTORY: There is no significant family history of early myocardial infarction. SOCIAL HISTORY: The patient is a former smoker. She denies alcohol abuse. REVIEW OF SYSTEMS: As in the History of Present Illness, otherwise negative or noncontributory. She also denies headache, abdominal pain, melena, dyspepsia, bright red blood per rectum. PHYSICAL EXAMINATION: VITAL SIGNS: Her blood pressure 130/70 with a pulse of 60, respirations 15. GENERAL: She is a well-developed, well-nourished white female, in no acute distress. HEENT/NECK: Jugular venous pressure is normal. Carotid pulses are 2+ bilaterally and without bruits. CHEST: Examination of the chest reveals clear lung ramirez. HEART: On cardiac examination she has a bradycardic regular rhythm without S3, S4 or murmur. ABDOMEN: On abdominal examination, she has a soft, nontender abdomen. Bowel sounds are present. There is no definite hepatosplenomegaly. EXTREMITIES: Reveals no clubbing, cyanosis or edema. Peripheral pulses are normal throughout. EKG shows atrial paced rhythm, anterior ST elevation consistent with acute injury pattern. LABORATORY DATA: Includes normal CBC. Potassium 3.7, BUN 9, creatinine 0.8. CK 48. Troponin less than 0.02. Chest x-ray shows no acute disease. IMPRESSION: Acute anterior ST elevation myocardial infarction in this 62-year-old white female with an extensive history of coronary artery disease, status post a number of percutaneous coronary interventions on the mid left anterior descending, status post 2 vessel keyhole bypass surgery approximately 2010, ischemic cardiomyopathy with ejection fraction of 35% status post AICD implant, history of GI bleeding in 2012. At this time, she continues to ongoing chest discomforts with ST elevation on monitoring. Therefore, she has been recommended emergency cardiac catheterization with probable percutaneous coronary intervention, the risks of which have been explained to her including, but not limited to , myocardial infarction, stroke, arrhythmia, bleeding, infection, renal failure. She agrees to proceed. RECOMMENDATIONS: 1. Emergency cardiac catheterization. 2. Beta sari and ARMIN inhibitor therapy. 3. Check a fasting lipid profile and initiate statin therapy. MD TERESITA Dempsey/MAGDALENE , 12:11 PM , 12:47 PM [facility]
[2017-04-24] MEDS ORDERED: IOHEXOL 350 MG/ML 100 ML BTL (for Cath Lab) OTHER ONE (13:23)
[2017-04-24] MEDS ORDERED: IOHEXOL 350 MG/ML 50 ML BTL (for Cath Lab) OTHER ONE (13:23)
[2017-04-24] MEDS ORDERED: MIDAZOLAM HCL 2 MG/2 ML VIAL IV PUSH ONE (13:30)
[2017-04-24] MEDS ORDERED: CLOPIDOGREL 300 MG TAB PO ONE (13:30)
[2017-04-24] MEDS: ATORVASTATIN 40 MG TAB PO SCH (21:03)
[2017-04-24] MEDS: ENALAPRIL MALEATE 5 MG TAB PO SCH (21:03)
[2017-04-24] MEDS: CARVEDILOL 3.125 MG TAB PO SCH (21:03)
[2017-04-25] VITALS (29 sets, daily range): BP systolic 89–131; BP diastolic 58–93; PULSE 60–73; RESP 12–46; TEMP 98–98.9; O2SAT 96–97
[2017-04-25 04:08] LABS: AUTOMATED NEUTROPHIL # 4.4 TH/MM3 (1.8-7.7); BASOPHIL # 0.1 TH/MM3 (0-0.2); BASOPHIL % 0.8 % (0.0-2.0); EOSINOPHIL # 0.1 TH/MM3 (0-0.4); EOSINOPHIL % 2.2 % (0.0-4.0); HEMATOCRIT 39.7 % (35.0-46.0); HEMOGLOBIN 13.9 GM/DL (11.6-15.3); LYMPH % 22.1 % (9.0-44.0); LYMPHOCYTE # 1.5 TH/MM3 (1.0-4.8); MEAN CELL VOLUME 92.7 FL (80.0-100.0); MEAN CORPUSCULAR HEMOGLOBIN 32.6 PG (27.0-34.0); MEAN CORPUSCULAR HGB CONC 35.2 % (32.0-36.0); MEAN PLATELET VOLUME 7.5 FL (7.0-11.0); MONO % 10.2 % (0.0-8.0); MONOCYTE # 0.7 TH/MM3 (0-0.9); NEUT % 64.7 % (16.0-70.0); PLATELET COUNT 240 TH/MM3 (150-450); RED BLOOD COUNT 4.28 MIL/MM3 (4.00-5.30); RED CELL DISTRIBUTION WIDTH 13.1 % (11.6-17.2); WHITE BLOOD COUNT 6.7 TH/MM3 (4.0-11.0)
[2017-04-25 04:49] LABS: BICARBONATE 21.5 MEQ/L (21.0-32.0); CALCIUM 8.1 MG/DL (8.5-10.1); CHOLESTEROL/ HDL RATIO 3.67 RATIO; CREATININE 0.71 MG/DL (0.50-1.00); HDL CHOLESTEROL 39.5 MG/DL (40.0-60.0)
[2017-04-25] MEDS ORDERED: POTASSIUM CHLORIDE 10 MEQ CONTROLLED RELEASE TAB PO ONE (05:45)
[2017-04-25] MEDS: CLOPIDOGREL 75 MG TAB PO SCH (09:22)
[2017-04-25] MEDS: CARVEDILOL 3.125 MG TAB PO SCH ×2 (09:22→20:27)
[2017-04-25] MEDS: ASPIRIN 325 MG TAB PO SCH (09:22)
[2017-04-25] MEDS: ENALAPRIL MALEATE 5 MG TAB PO SCH ×2 (09:23→20:27)
[2017-04-25] MEDS ORDERED: INFLUENZA VIRUS VACCINE (QUADRIVALENT) 0.5 ML SYR IM ONE (10:00)
--- NOTE | 2017-04-25 10:56 | PD.CARD.PN ---
Subjective Subjective Remarks Denies CP, dyspnea, groin pain, dizziness, palpitations. Objective Medications Item Value Date Time Aspirin 325 mg 04/25/17899 (Aspirin) DAILY/PO 04/25/17921 Clopidogrel 75 mg 04/25/17899 Bisulfate DAILY/PO 04/25/17921 (Plavix) Carvedilol 3.125 mg 04/24/172099 (Coreg) BID/PO 04/25/17921 Enalapril Maleate 5 mg 04/24/172099 (Vasotec) BID/PO 04/25/17922 Atorvastatin 40 mg 04/24/172099 Calcium HS/PO 04/24/172102 (Lipitor) Current Medications Medications (Trade) Dose Ordered Sig/Chuyita Route Start Time Stop Time Status Last Admin (NS Flush) 2 ml UNSCH PRN IVF 04/24/17 10:15 Nitroglycerin/ Dextrose 250 ml @ 3 mls/hr TITRATE PRN IV 04/24/17 11:15 (Restoril) 15 mg HS PRN PO 04/24/17 11:45 (Aspirin) 325 mg DAILY PO 04/25/17 09:00 04/25/17 09:22 (Plavix) 75 mg DAILY PO 04/25/17 09:00 04/25/17 09:22 (Coreg) 3.125 mg BID PO 04/24/17 21:00 04/25/17 09:22 (Vasotec) 5 mg BID PO 04/24/17 21:00 04/25/17 09:23 (Lipitor) 40 mg HS PO 04/24/17 21:00 04/24/17 21:03 Vital Signs / I&O Vital Signs Date Time Temp Pulse Resp B/P (MAP) Pulse Ox O2 Delivery O2 Flow Rate FiO2 04/25/17 06:00 61 04/25/17 04:00 60 04/25/17 04:00 98.3 60 12 119/78 (92) 96 04/25/17 02:00 62 04/25/17 00:00 98.5 60 21 118/84 (95) 96 04/25/17 00:00 60 04/24/17 22:00 60 04/24/17 20:00 61 04/24/17 20:00 97.6 60 23 138/77 (97) 97 04/24/17 18:00 60 04/24/17 16:00 60 04/24/17 16:00 98.2 60 22 100/61 (74) 96 04/24/17 14:00 98.5 60 22 129/78 (95) 99 04/24/17 14:00 60 04/24/17 12:30 60 04/24/17 12:30 97.3 60 21 126/83 (97) 98 I/O 04/24/17 04/24/17 04/24/17 04/25/17 04/25/17 04/25/17 07:00 15:00 23:00 07:00 15:00 23:00 Intake Total 153 ml 332 ml Output Total 0 ml Balance 153 ml 332 ml Intake Oral 40 ml 240 ml IV Total 113 ml 92 ml Output Urine Total 0 ml # Voids 2 Physical Exam GENERAL: Well developed, well nourished. No acute distress. HEENT: Jugular venous pressure is normal. CHEST: Lungs clear to auscultation bilaterally. Unlabored respiratory effort. CARDIAC: Regular rate and rhythm without S3, S4, or murmur. ABDOMEN: Soft, nontender, no hepatosplenomegaly. Bowel sounds present. EXTREMITIES: No clubbing, cyanosis, or edema. Laboratory Laboratory Tests Test 04/25/17 03:42 White Blood Count 6.7 TH/MM3 Red Blood Count 4.28 MIL/MM3 Hemoglobin 13.9 GM/DL Hematocrit 39.7 % Mean Corpuscular Volume 92.7 FL Mean Corpuscular Hemoglobin 32.6 PG Mean Corpuscular Hemoglobin Concent 35.2 % Red Cell Distribution Width 13.1 % Platelet Count 240 TH/MM3 Mean Platelet Volume 7.5 FL Neutrophils (%) (Auto) 64.7 % Lymphocytes (%) (Auto) 22.1 % Monocytes (%) (Auto) 10.2 % Eosinophils (%) (Auto) 2.2 % Basophils (%) (Auto) 0.8 % Neutrophils # (Auto) 4.4 TH/MM3 Lymphocytes # (Auto) 1.5 TH/MM3 Monocytes # (Auto) 0.7 TH/MM3 Eosinophils # (Auto) 0.1 TH/MM3 Basophils # (Auto) 0.1 TH/MM3 CBC Comment DIFF FINAL Differential Comment Blood Urea Nitrogen 11 MG/DL Creatinine 0.71 MG/DL Random Glucose 91 MG/DL Calcium Level 8.1 MG/DL Sodium Level 139 MEQ/L Potassium Level 3.1 MEQ/L Chloride Level 106 MEQ/L Carbon Dioxide Level 21.5 MEQ/L Anion Gap 12 MEQ/L Estimat Glomerular Filtration Rate 84 ML/MIN Magnesium Level 1.9 MG/DL Total Creatine Kinase 124 U/L Triglycerides Level 111 MG/DL Cholesterol Level 145 MG/DL LDL Cholesterol 83 MG/DL HDL Cholesterol 39.5 MG/DL Cholesterol/HDL Ratio 3.67 RATIO Assessment and Plan Problem List: (1) STEMI (ST elevation myocardial infarction) ICD Codes: I21.3 - ST elevation (STEMI) myocardial infarction of unspecified site Status: Acute Plan: Stable overnight. No further angina. No CHF/arrhythmias. Groin stable. REC 24 more hours observation, increase ambulation continue aspirin, Plavix, beta sari/ARMIN-I (2) Ischemic cardiomyopathy ICD Codes: I25.5 - Ischemic cardiomyopathy Status: Chronic Plan: Stable. Compensated. Continue beta sari, ARMIN-I. (3) Hypertension ICD Codes: I10 - Essential (primary) hypertension Status: Chronic Plan: Stable. Normotensive. (4) Hyperlipidemia ICD Codes: E78.5 - Hyperlipidemia Status: Chronic Plan: Somewhat suboptimal LDL level. Continue statin, recheck lipid profile in 6-8 weeks. (5) S/P implantation of automatic cardioverter/defibrillator (AICD) ICD Codes: Z95.810 - Presence of automatic (implantable) cardiac defibrillator Status: Chronic Plan: Will have [email or web address] rep check device today. Code Status full code Discussed Condition With patient Problem Qualifiers (1) STEMI (ST elevation myocardial infarction): Qualified Codes: I21.02 - ST elevation (STEMI) myocardial infarction involving left anterior descending coronary artery (2) Hypertension: Qualified Codes: I10 - Essential (primary) hypertension (3) Hyperlipidemia: Qualified Codes: E78.2 - Mixed hyperlipidemia Darius Macdonald MD Apr 25, 2017 10:56
--- NOTE | 2017-04-25 14:58 | HHI.PR ---
Subjective Remarks Follow-up ST elevation [place] 04/25/17-patient seen and examined, denies any angina chest pain, shortness of breath. Objective Vitals Vital Signs Date Time Temp Pulse Resp B/P (MAP) Pulse Ox O2 Delivery O2 Flow Rate FiO2 04/25/17 11:31 60 04/25/17 11:31 60 16 92/62 (72) 04/25/17 11:15 62 04/25/17 11:15 62 21 95/61 (72) 04/25/17 11:00 60 25 102/68 (79) 04/25/17 11:00 60 04/25/17 10:45 63 22 101/63 (76) 04/25/17 10:45 63 04/25/17 10:15 61 04/25/17 10:15 61 29 98/65 (76) 04/25/17 10:00 63 14 95/60 (72) 04/25/17 10:00 63 04/25/17 09:45 65 04/25/17 09:45 65 21 108/68 (81) 04/25/17 09:31 68 04/25/17 09:31 68 46 125/93 (104) 04/25/17 09:15 62 04/25/17 09:15 62 38 112/79 (90) 04/25/17 09:00 66 04/25/17 09:00 66 27 115/75 (88) 04/25/17 08:45 60 27 116/74 (88) 04/25/17 08:45 60 04/25/17 08:30 60 04/25/17 08:30 60 16 120/77 (91) 04/25/17 08:15 60 04/25/17 08:15 60 23 131/82 (98) 04/25/17 08:00 60 04/25/17 08:00 98.9 60 13 119/77 (91) 04/25/17 06:00 61 04/25/17 04:00 60 04/25/17 04:00 98.3 60 12 119/78 (92) 96 04/25/17 02:00 62 04/25/17 00:00 98.5 60 21 118/84 (95) 96 04/25/17 00:00 60 04/24/17 22:00 60 04/24/17 20:00 61 04/24/17 20:00 97.6 60 23 138/77 (97) 97 04/24/17 18:00 60 04/24/17 16:00 60 04/24/17 16:00 98.2 60 22 100/61 (74) 96 I/O 04/24/17 04/24/17 04/24/17 04/25/17 04/25/17 04/25/17 07:00 15:00 23:00 07:00 15:00 23:00 Intake Total 153 ml 332 ml Output Total 0 ml Balance 153 ml 332 ml Intake Oral 40 ml 240 ml IV Total 113 ml 92 ml Output Urine Total 0 ml # Voids 2 Result Diagram: 04/25/17 0342 04/25/17 1347 Imaging Last Impressions Chest X-Ray 04/24/17 1015 Signed Impressions: Service Date/Time: Monday, April 24, 2017 10:21 - CONCLUSION: 1. No active disease. Pacer lead overlies right atrium and right ventricle. Gunner Singh MD Objective Remarks GENERAL: NAD SKIN: Warm and dry. HEAD: Normocephalic. EYES: No scleral icterus. No injection or drainage. NECK: Supple, trachea midline. No JVD or lymphadenopathy. CARDIOVASCULAR: Regular rate and rhythm without murmurs, gallops, or rubs. RESPIRATORY: Breath sounds equal bilaterally. No accessory muscle use. GASTROINTESTINAL: Abdomen soft, non-tender, nondistended. MUSCULOSKELETAL: No cyanosis, or edema. BACK: Nontender without obvious deformity. No CVA tenderness. A/P Problem List: (1) STEMI (ST elevation myocardial infarction) ICD Code: I21.3 - ST elevation (STEMI) myocardial infarction of unspecified site Status: Acute (2) Hyperlipidemia ICD Code: E78.5 - Hyperlipidemia Status: Chronic (3) Hypertension ICD Code: I10 - Essential (primary) hypertension Status: Chronic Assessment and Plan 62-year-old female with ST elevation (STEMI) myocardial infarction Status post PCI with stent placement continue aspirin, Plavix, beta sari/ARMIN-I Appreciate input from cardiology Ischemic cardiomyopathy Continue beta sari, ARMIN-I. Essential (primary) hypertension Normotensive on beta sari Hyperlipidemia Continue statin, recheck lipid profile in 6-8 weeks. S/P implantation of automatic cardioverter/defibrillator (AICD) [employer] rep to check device today. Problem Qualifiers (1) STEMI (ST elevation myocardial infarction): Qualified Codes: I21.02 - ST elevation (STEMI) myocardial infarction involving left anterior descending coronary artery (2) Hyperlipidemia: Qualified Codes: E78.2 - Mixed hyperlipidemia (3) Hypertension: Qualified Codes: I10 - Essential (primary) hypertension Garry Hernandez MD Apr 25, 2017 14:58
--- NOTE | 2017-04-25 17:52 | EKG ---
Date Performed: 04/25/2017 Time Performed: 05:19:34 PTAGE: 62 years EKG: Possible ectopic atrial rhythm Nonspecific T-wave change anteriorly Poor R-wave progression across the precordium which may be normal variant Abnormal ECG NO PREVIOUS TRACING DOCTOR: Emmanuel Pham Interpretating Date/Time 04/25/2017 17:51:54
--- NOTE | 2017-04-25 17:58 | EKG ---
Date Performed: 04/24/2017 Time Performed: 10:11:18 PTAGE: 62 years EKG: ELECTRONIC ATRIAL PACEMAKER THERE IS ST ELEVATION IN LEADS V1 THROUGH V4 WITH SOME ST DEPRE SSION INFERIORLY. ACUTE ANTEROSEPTAL MYOCARDIAL INFARCTION SHOULD BE STRONLY CONSIDERED. THERE IS POO R R-WAVE PROGRESSION ACROSS THE PRECORDIUM IN V1 THROUGH V4. ABNORMAL ECG Compared to PREVIOUS TRACING , the ST elevation anteriorly is new. Clinical correlation is strongly r ecommended. PREVIOUS TRACIN02/20/2016 00.59 DOCTOR: Emmanuel Pham Interpretating Date/Time 04/25/2017 17:57:46
[2017-04-25] MEDS: ATORVASTATIN 40 MG TAB PO SCH (20:27)
[2017-04-26] VITALS (12 sets, daily range): BP systolic 102–128; BP diastolic 66–86; PULSE 59–69; RESP 14–18; TEMP 97.6–98.3; O2SAT 97–99
[2017-04-26] MEDS: CLOPIDOGREL 75 MG TAB PO SCH (09:20)
[2017-04-26] MEDS: CARVEDILOL 3.125 MG TAB PO SCH (09:21)
[2017-04-26] MEDS: ASPIRIN 325 MG TAB PO SCH (09:21)
[2017-04-26] MEDS: ENALAPRIL MALEATE 5 MG TAB PO SCH (09:21)
--- NOTE | 2017-04-26 09:38 | PD.CARD.PN ---
Subjective Subjective Remarks Denies CP, dyspnea, dizziness, palpitations. Objective Medications Item Value Date Time Aspirin 325 mg 04/25/17899 (Aspirin) DAILY/PO 04/26/17920 Clopidogrel 75 mg 04/25/17899 Bisulfate DAILY/PO 04/26/17919 (Plavix) Carvedilol 3.125 mg 04/24/172099 (Coreg) BID/PO 04/26/17920 Enalapril Maleate 5 mg 04/24/172099 (Vasotec) BID/PO 04/26/17920 Atorvastatin 40 mg 04/24/172099 Calcium HS/PO 04/25/172026 (Lipitor) Current Medications Medications (Trade) Dose Ordered Sig/Chuyita Route Start Time Stop Time Status Last Admin (NS Flush) 2 ml UNSCH PRN IVF 04/24/17 10:15 Nitroglycerin/ Dextrose 250 ml @ 3 mls/hr TITRATE PRN IV 04/24/17 11:15 (Restoril) 15 mg HS PRN PO 04/24/17 11:45 (Aspirin) 325 mg DAILY PO 04/25/17 09:00 04/26/17 09:21 (Plavix) 75 mg DAILY PO 04/25/17 09:00 04/26/17 09:20 (Coreg) 3.125 mg BID PO 04/24/17 21:00 04/26/17 09:21 (Vasotec) 5 mg BID PO 04/24/17 21:00 04/26/17 09:21 (Lipitor) 40 mg HS PO 04/24/17 21:00 04/25/17 20:27 Vital Signs / I&O Vital Signs Date Time Temp Pulse Resp B/P (MAP) Pulse Ox O2 Delivery O2 Flow Rate FiO2 04/26/17 08:00 98.3 61 18 128/86 (100) 97 04/26/17 06:15 60 14 120/82 (95) 97 04/26/17 06:00 66 04/26/17 05:00 60 04/26/17 04:00 66 04/26/17 03:00 59 04/26/17 02:15 69 04/26/17 02:11 97.6 63 16 116/80 (92) 97 04/26/17 00:00 98.2 61 17 102/66 (78) 99 04/25/17 20:00 98.0 61 28 112/72 (85) 04/25/17 19:00 60 18 18:00 73 18 16:00 62 18 16:00 62 30 18 15:00 66 38 18 15:00 66 18 14:00 70 45 18 14:00 70 04/25/17 13:01 63 32 108/65 (79) 04/25/17 13:01 63 04/25/17 13:00 63 24 97 04/25/17 13:00 63 04/25/17 12:30 63 04/25/17 12:30 63 18 102/58 (73) 04/25/17 12:15 60 22 94/63 (73) 04/25/17 12:15 60 04/25/17 12:00 98.6 60 19 89/67 (74) 04/25/17 12:00 60 04/25/17 11:31 60 04/25/17 11:31 60 16 92/62 (72) 04/25/17 11:15 62 04/25/17 11:15 62 21 95/61 (72) 04/25/17 11:00 60 25 102/68 (79) 04/25/17 11:00 60 04/25/17 10:45 63 22 101/63 (76) 04/25/17 10:45 63 04/25/17 10:15 61 04/25/17 10:15 61 29 98/65 (76) 04/25/17 10:00 63 14 95/60 (72) 04/25/17 10:00 63 18 09:45 65 04/25/17 09:45 65 21 108/68 (81) I/O 04/25/18 04/25/18 17/18 04/26/18 04/26/18 04/26/17 07:00 15:00 23:00 07:00 15:00 23:00 Intake Total 332 ml 480 ml Balance 332 ml 480 ml Intake Oral 240 ml 480 ml IV Total 92 ml # Voids 2 1 Physical Exam GENERAL: Well developed, well nourished. No acute distress. HEENT: Jugular venous pressure is normal. CHEST: Lungs clear to auscultation bilaterally. Unlabored respiratory effort. CARDIAC: Regular rate and rhythm without S3, S4, or murmur. ABDOMEN: Soft, nontender, no hepatosplenomegaly. Bowel sounds present. EXTREMITIES: No clubbing, cyanosis, or edema. Laboratory Laboratory Tests Test 04/25/17 13:47 Potassium Level 3.6 MEQ/L Assessment and Plan Problem List: (1) STEMI (ST elevation myocardial infarction) ICD Codes: I21.3 - ST elevation (STEMI) myocardial infarction of unspecified site Status: Acute Plan: Stable overnight. No further angina. No CHF/arrhythmias. Ambulating without difficulty. REC discharge home on current medications, 4 week f/u with me (2) Ischemic cardiomyopathy ICD Codes: I25.5 - Ischemic cardiomyopathy Status: Chronic Plan: Stable. Compensated. Continue beta sari, ARMIN-I. (3) Hypertension ICD Codes: I10 - Essential (primary) hypertension Status: Chronic Plan: Stable. Normotensive. (4) Hyperlipidemia ICD Codes: E78.5 - Hyperlipidemia Status: Chronic Plan: Somewhat suboptimal LDL level. Continue statin, recheck lipid profile in 6-8 weeks. (5) S/P implantation of automatic cardioverter/defibrillator (AICD) ICD Codes: Z95.810 - Presence of automatic (implantable) cardiac defibrillator Status: Chronic Plan: Interrogation of her ICD yesterday shows normal, stable ICD function. Rare brief episodes of nonsustained VT recorded past couple years. 6.3 years left on battery life Code Status full code Discussed Condition With patient Problem Qualifiers (1) STEMI (ST elevation myocardial infarction): Qualified Codes: I21.02 - ST elevation (STEMI) myocardial infarction involving left anterior descending coronary artery (2) Hypertension: Qualified Codes: I10 - Essential (primary) hypertension (3) Hyperlipidemia: Qualified Codes: E78.2 - Mixed hyperlipidemia Darius Macdonald MD Apr 26, 2017 09:38
--- NOTE | 2017-04-26 10:35 | HHI.PR ---
Subjective Remarks Follow-up ST elevation [place] 04/25/17-patient seen and examined, denies any angina chest pain, shortness of breath. 04/26/17-patent seen and examined, stable and no acute event overnight. Afebrile Objective Vitals Vital Signs Date Time Temp Pulse Resp B/P (MAP) Pulse Ox O2 Delivery O2 Flow Rate FiO2 04/26/17 08:00 98.3 61 18 128/86 (100) 97 04/26/17 06:15 60 14 120/82 (95) 97 04/26/17 06:00 66 04/26/17 05:00 60 04/26/17 04:00 66 04/26/17 03:00 59 04/26/17 02:15 69 04/26/17 02:11 97.6 63 16 116/80 (92) 97 04/26/17 00:00 98.2 61 17 102/66 (78) 99 04/25/17 20:00 98.0 61 28 112/72 (85) 04/25/17 19:00 60 04/25/17 18:00 73 04/25/17 16:00 62 04/25/17 16:00 62 30 04/25/17 15:00 66 38 04/25/17 15:00 66 04/25/17 14:00 70 45 04/25/17 14:00 70 04/25/17 13:01 63 32 108/65 (79) 04/25/17 13:01 63 04/25/17 13:00 63 24 97 04/25/17 13:00 63 04/25/17 12:30 63 04/25/17 12:30 63 18 102/58 (73) 04/25/17 12:15 60 22 94/63 (73) 04/25/17 12:15 60 04/25/17 12:00 98.6 60 19 89/67 (74) 04/25/17 12:00 60 04/25/17 11:31 60 04/25/17 11:31 60 16 92/62 (72) 04/25/17 11:15 62 04/25/17 11:15 62 21 95/61 (72) 04/25/17 11:00 60 25 102/68 (79) 04/25/17 11:00 60 04/25/17 10:45 63 22 101/63 (76) 04/25/17 10:45 63 I/O 04/25/17 04/25/17 04/25/17 04/26/17 04/26/17 04/26/17 07:00 15:00 23:00 07:00 15:00 23:00 Intake Total 332 ml 480 ml Balance 332 ml 480 ml Intake Oral 240 ml 480 ml IV Total 92 ml # Voids 2 1 Result Diagram: 04/25/17 0342 04/25/17 1347 Imaging Last Impressions Chest X-Ray 04/24/17 1015 Signed Impressions: Service Date/Time: Monday, April 24, 2017 10:21 - CONCLUSION: 1. No active disease. Pacer lead overlies right atrium and right ventricle. Gunner Singh MD Objective Remarks GENERAL: NAD SKIN: Warm and dry. HEAD: Normocephalic. EYES: No scleral icterus. No injection or drainage. NECK: Supple, trachea midline. No JVD or lymphadenopathy. CARDIOVASCULAR: Regular rate and rhythm without murmurs, gallops, or rubs. RESPIRATORY: Breath sounds equal bilaterally. No accessory muscle use. GASTROINTESTINAL: Abdomen soft, non-tender, nondistended. MUSCULOSKELETAL: No cyanosis, or edema. BACK: Nontender without obvious deformity. No CVA tenderness. Procedures PCI with stent placement A/P Problem List: (1) STEMI (ST elevation myocardial infarction) ICD Code: I21.3 - ST elevation (STEMI) myocardial infarction of unspecified site Status: Acute (2) Hyperlipidemia ICD Code: E78.5 - Hyperlipidemia Status: Chronic (3) Hypertension ICD Code: I10 - Essential (primary) hypertension Status: Chronic Assessment and Plan 62-year-old female with ST elevation (STEMI) myocardial infarction Status post PCI with stent placement continue aspirin, Plavix, beta sari/ARMIN-I Appreciate input from cardiology Ischemic cardiomyopathy Continue beta sari, ARMIN-I. Essential (primary) hypertension Normotensive on beta sari Hyperlipidemia Continue statin, recheck lipid profile in 6-8 weeks. S/P implantation of automatic cardioverter/defibrillator (AICD) Interrogation of her ICD 04/25/17 shows normal, stable ICD function. Rare brief episodes of nonsustained VT recorded past couple years. 6.3 years left on battery life Problem Qualifiers (1) STEMI (ST elevation myocardial infarction): Qualified Codes: I21.02 - ST elevation (STEMI) myocardial infarction involving left anterior descending coronary artery (2) Hyperlipidemia: Qualified Codes: E78.2 - Mixed hyperlipidemia (3) Hypertension: Qualified Codes: I10 - Essential (primary) hypertension Garry Hernandez MD Apr 26, 2017 10:35
[2017-04-26] MEDS ORDERED: CARV3.125 PO (10:44)
[2017-04-26] MEDS ORDERED: PLAV75TA29 PO (10:44)
[2017-04-26] MEDS ORDERED: ASA325 PO (10:44)
[2017-04-26] MEDS ORDERED: ENAL5TAB PO (10:44)
[2017-04-26] MEDS ORDERED: ATOR40TA16 PO (10:44)
--- NOTE | 2017-04-26 10:48 | HHI.DS ---
Discharge Summary Admission Date Apr 24, 2017 at 10:32 Discharge Date: Apr 26, 2017 Admitting Diagnosis STEMI (1) STEMI (ST elevation myocardial infarction) ICD Code: I21.3 - ST elevation (STEMI) myocardial infarction of unspecified site Status: Acute (2) Hyperlipidemia ICD Code: E78.5 - Hyperlipidemia Status: Chronic (3) Hypertension ICD Code: I10 - Essential (primary) hypertension Status: Chronic Procedures PCI with stent placement Brief History - From Admission The patient is a 62-year-old white female with an extensive history of coronary artery disease, history of ischemic cardiomyopathy, hypertension, peptic ulcer disease, history of AICD implant, who presented to the hospital with chest pain. At about 8:30 a.m. this morning she developed a substernal chest pressure associated with diaphoresis, without shortness of breath or nausea. She came to the Emergency Department at about 10 a.m. where EKG showed evidence for acute anterior ST elevation myocardial infarction. At the present time, she is having continued mild chest discomfort. She states the chest pain feels exactly like her previous angina. She denies pleurisy, dizziness, syncope, near syncope, palpitations, pedal edema, paroxysmal nocturnal dyspnea. The patient was last here in 2012, at which time she was seeing Dr. Robles. She then moved to [place] where she did not need any cardiac hospitalizations. CBC/BMP: 04/25/17 0342 04/25/17 1347 Significant Findings Laboratory Tests Test 04/24/17 10:15 04/25/17 03:42 04/25/17 13:47 Monocytes (%) (Auto) 8.6 % (0.0-8.0) 10.2 % (0.0-8.0) Activated Partial Thromboplast Time 22.4 SEC (24.3-30.1) Troponin I LESS THAN 0.02 NG/ML B-Type Natriuretic Peptide 119 PG/ML (0-100) Calcium Level 8.1 MG/DL (8.5-10.1) Potassium Level 3.1 MEQ/L (3.5-5.1) Estimat Glomerular Filtration Rate 84 ML/MIN (>89) HDL Cholesterol 39.5 MG/DL (40.0-60.0) Imaging Last Impressions Chest X-Ray 04/24/17 1015 Signed Impressions: Service Date/Time: Monday, April 24, 2017 10:21 - CONCLUSION: 1. No active disease. Pacer lead overlies right atrium and right ventricle. Gunner Singh MD PE at Discharge GENERAL: NAD SKIN: Warm and dry. HEAD: Normocephalic. EYES: No scleral icterus. No injection or drainage. NECK: Supple, trachea midline. No JVD or lymphadenopathy. CARDIOVASCULAR: Regular rate and rhythm without murmurs, gallops, or rubs. RESPIRATORY: Breath sounds equal bilaterally. No accessory muscle use. GASTROINTESTINAL: Abdomen soft, non-tender, nondistended. MUSCULOSKELETAL: No cyanosis, or edema. BACK: Nontender without obvious deformity. No CVA tenderness. Hospital Course while In the hospital, patient was treated for: ST elevation (STEMI) myocardial infarction Status post PCI with stent placement by cardiology Treated with aspirin, Plavix, beta sari/ARMIN-I Ischemic cardiomyopathy Treated with beta sari, ARMIN-I. Essential (primary) hypertension Normotensive on beta sari Hyperlipidemia Treated with statin, recheck lipid profile in 6-8 weeks. S/P implantation of automatic cardioverter/defibrillator (AICD) Interrogation of her ICD 04/25/17 shows normal, stable ICD function. Rare brief episodes of nonsustained VT recorded past couple years. 6.3 years left on battery life Pt Condition on Discharge: Good Discharge Disposition: Discharge Home Discharge Time: <= 30 minutes Discharge Instructions DIET: Follow Instructions for: Heart Healthy Diet Activities you can perform: Regular-No Restrictions Follow up Referrals: Cardiology - 4 Weeks PCP Follow-up - 1 Week New Medications: Aspirin (Px Aspirin) 325 Mg Tab 325 MG PO DAILY for Prevent Blood Clot, #30 TAB Atorvastatin (Atorvastatin) 40 Mg Tab 40 MG PO HS for Cholesterol Management, #30 TAB 3 Refills Carvedilol (Coreg) 3.125 Mg Tab 3.125 MG PO BID for Breathing Treatment, #60 TAB 3 Refills Clopidogrel (Plavix) 75 Mg Tab 75 MG PO DAILY for Prevent Blood Clot, #30 TAB 3 Refills Enalapril (Enalapril) 5 Mg Tab 5 MG PO BID for Blood Pressure Management, #60 TAB 3 Refills Continued Medications: Pantoprazole (Protonix) 40 Mg Tab 40 MG PO DAILY for Reflux, #30 TAB 0 Refills Discontinued Medications: Hydrochlorothiazide (Hydrochlorothiazide) 12.5 Mg Tab 12.5 MG PO DAILY, #30 TAB 0 Refills Lisinopril (Lisinopril) 10 Mg Tab 10 MG PO DAILY, #30 TAB 0 Refills Metoprolol Tartrate (Metoprolol Tartrate) 25 Mg Tab 25 MG PO DAILY, #30 TAB 0 Refills Garry Hernandez MD Apr 26, 2017 10:48
== END 2017-04-26 12:10 | disposition home or self-care (01) | DRG 247 ==
LOC: NEPE 09:56 → NEDA 10:32 → HIMN 12:16 → HCIS 04-26 02:10
PROVIDERS: ADMIT Hospitalist; ATTEND Hospitalist
PROC: 027034Z Dilation of Coronary Artery, One Artery with Drug-eluting Intraluminal Device, Percutaneous Approach (ICD-10-PCS; principal; 2017-04-24)
PROC: B240ZZ3 Ultrasonography of Single Coronary Artery, Intravascular (ICD-10-PCS; 2017-04-24)
PROC: B2151ZZ Fluoroscopy of Left Heart using Low Osmolar Contrast (ICD-10-PCS; 2017-04-24)
PROC: B2111ZZ Fluoroscopy of Multiple Coronary Arteries using Low Osmolar Contrast (ICD-10-PCS; 2017-04-24)
PROC: B2131ZZ Fluoroscopy of Multiple Coronary Artery Bypass Grafts using Low Osmolar Contrast (ICD-10-PCS; 2017-04-24)
PROC: 4A023N7 Measurement of Cardiac Sampling and Pressure, Left Heart, Percutaneous Approach (ICD-10-PCS; 2017-04-24)
DX: I21.02 ST elevation (STEMI) myocardial infarction involving left anterior descending coronary artery (principal); I47.2 Ventricular tachycardia; I25.810 Atherosclerosis of coronary artery bypass graft(s) without angina pectoris; I10 Essential (primary) hypertension; E78.2 Mixed hyperlipidemia; I25.10 Atherosclerotic heart disease of native coronary artery without angina pectoris; I25.2 Old myocardial infarction; I25.5 Ischemic cardiomyopathy; F41.9 Anxiety disorder, unspecified; Z23 Encounter for immunization; Z87.891 Personal history of nicotine dependence; Z95.1 Presence of aortocoronary bypass graft; Z95.5 Presence of coronary angioplasty implant and graft; Z95.810 Presence of automatic (implantable) cardiac defibrillator
CPT/HCPCS: 71045; 80048; 80061; 82310; 82550; 82948; 83735; 83880; 84132; 84484; 85002; 85025; 85610; 85730; 90686; 92928; 93005; 93458; 96374; 99152; 99153; C1725; C1753; C1769; C1874; C1887; C1893; J1644; J2250; J3010; J3246; J7030; Q2038; Q9967